=== PATIENT | female | born 1940 | race Caucasian/White ===

== ENCOUNTER 2024-03-03 03:34 | Inpatient (IN) | payer MEDICARE, OTHER, SELFPAY ==
[2024-03-02 22:36] VITALS: BMI 40.0
[2024-03-02 22:38] VITALS: BP 192/78
[2024-03-02 22:47] VITALS: BP 192/78
[2024-03-02 22:52] LABS: % Basophils 0.2 % (0-2); % Immature Granulocytes 0.6 % (0-0.5); % Monocytes 6.4 % (1.7-9.3); % Neutrophils 88.8 % (42.2-75.2); Absolute Immature Granulocytes 0.1 10^3/uL (0-0.05); Absolute Lymphocytes 0.6 10^3/uL (1.2-3.4); Absolute Monocytes 0.9 10^3/uL (0.1-0.6); Absolute Neutrophils 13.1 10^3/uL (1.4-6.5); Hematocrit 36.1 % (37.0-47.0); Hemoglobin 12.6 g/dL (12.0-16.0); Mean Corp Hgb Conc. 34.9 g/dL (33.0-37.0); Mean Corpuscular Hgb 31.5 pg (27.0-31.0); Mean Corpuscular Volume 90.3 fL (81.0-99.0); Nucleated Red Blood Cells % 0 %; Platelet Count 163 10^3/uL (130-400); Red Cell Dist. Width 14.5 % (11.5-14.5); White Blood Cell Count 14.7 10^3/uL (4.8-10.8)
[2024-03-02 23:00] VITALS: BP 197/87
[2024-03-02] MEDS: NSS 1000 IV (23:12)
[2024-03-02] MEDS: TYLENOL 1000 MG PO (23:13)
[2024-03-02 23:18] LABS: ALT (SGPT) 16 U/L (0-35); AST (SGOT) 26 U/L (14-36); Albumin 4.4 g/dl (3.5-5.0); Alkaline Phosphatase 98 U/L (38-126); Blood Urea Nitrogen 25 mg/dl (7-17); Calcium 9.2 mg/dl (8.4-10.2); Carbon Dioxide 23 mmol/L (22-30); Chloride 105 mmol/L (98-107); Glucose 151 mg/dl (70-99); Potassium 3.7 mmol/L (3.5-5.1); Sodium 137 mmol/L (135-145); Total Bilirubin 1.2 mg/dl (0.2-1.3); Total Protein 8.3 g/dl (6.3-8.2); eGFR 49.55
[2024-03-02 23:32] LABS: Creatine Phosphokinase 115 U/L (30-135)
[2024-03-02 23:51] LABS: Urine Albumin 3+ (Neg - Trace); Urine Bilirubin 1+ (Negative); Urine Character Clear (Clear); Urine Color Yellow; Urine Glucose Negative (Negative); Urine Ketone Trace (Negative); Urine Leukocyte Trace (Negative); Urine Nitrite Negative (Negative); Urine Occult Blood Trace (Negative); Urine Specific Gravity 1.025 (<1.030); Urine Urobilinogen Negative (Neg - 1+)
[2024-03-03] VITALS (16 sets, daily range): BP systolic 126–197; BP diastolic 45–134; PULSE 62; O2SAT 94; BMI 40.6
[2024-03-03 01:04] LABS: Urine Hyaline Cast >15 /LPF (0-2); Urine Mucus Moderate
[2024-03-03 01:06] LABS: Urine Bacteria Moderate (Negative); Urine Red Blood Cell 0-2 /HPF (0-2)
--- NOTE | 2024-03-03 01:52 | ED.GENMED ---
History of Present Illness
<FREEDOM Calderon - Last Filed: 03/03/24 05:18>
General
Chief Complaint: Weakness
Source: patient and family
Exam Limitations: none
Time Seen by Provider: 03/03/24 01:15
Travel History
Have you had any contact with someone who has COVID-19?: No
Do you have any symptoms of coronavirus? Fever > 100 degrees, chills, cough, shortness of breath, sore throat, loss of taste or smell, muscle aches, or headache?: No
History of Present Illness
History of Present Illness:
This is a 83 year old female with history of HTN, HLD, OA, melanoma with lymph nodes removal on left side who presents to the ED after her daughter found her stuck in her [employer] chair since 3am. Patient was found approximately 15hrs later
without any food or water. Patient reports she was unable to get up from her chair due to knee pain/stiffness. She reports still having difficulty moving her lower extremity due to the pain. She typically takes Advil daily for her OA pain. She also
admits trauma to her left breast x3 days ago where she bumped into the stairs railing. She reports redness to her left breast. She does a history of melanoma resection from her left and left axillary node dissection about 10 years ago. She denies
any pain, burning, swelling, or itching with her left breast. This has not happened to her in the past. She denies chest pain, shortness of breath, headache, or abdominal pain.
Past History
<FREEDOM Calderon - Last Filed: 03/03/24 05:18>
Past History
ED Past Medical History: HTN, Hypercholesterolemia, Other (Patient has a remote history of melanoma removed from her back 10 years ago. No chemotherapy or radiation.) and Other (Prior history of pneumonia)
ED Past Surgical History: Other (Melanoma resection from her back and left axillary node dissection which had a single positive for melanoma 10 years ago)
Social History
Tobacco: Non-smoker
Alcohol: None
Living: alone
Family History
Family History: Negative Diabetes, Hypertension, Early CAD, Asthma or Cancer
Review of Systems
<FREEDOM Calderon - Last Filed: 03/03/24 05:18>
Review of Systems
Allergies reviewed?: Yes
All Other Systems: Not applicable
Constitutional: Reports no symptoms
EENT: Reports no symptoms
Respiratory: Reports no symptoms
Cardiac: Reports no symptoms
ABD/GI: Reports no symptoms
: Reports no symptoms
Musculoskeletal: Reports joint pain and muscle stiffness
Skin: Reports other (Left breast blanchable erythema )
Neurological: Reports no symptoms
Endocrine: Reports no symptoms
Hematologic/Lymphatic: Reports no symptoms
Psychiatric: Reports no symptoms
Phy Exam
<FREEDOM Calderon - Last Filed: 03/03/24 05:18>
General Physical Exam
General Presentation: well appearing and no apparent distress
General Skin: warm and dry
General Habitus: normal
General Mental: alert
General Hydration: appears well hydrated
ENT Exam
ENT Exam: EOMI, pharynx normal, neck supple and normocephalic
Eye Exam
Eye Exam: PERRL, cornea clear and conjunctiva normal
Cardiovascular Exam
Cardiovascular Exam: regular rate/rhythm, no edema, no murmur and normal peripheral pulses
Pulmonary Exam
Pulmonary Exam: lungs clear, no respiratory distress, no rales, no crackles, no rhonchi, no stridor, no wheezing and no cough
Gastrointestinal Exam
Gastrointestinal Exam: normal bowel sounds, non tender, soft, no organomegaly, no pulsatile mass and non distended
Neurological Exam
Neurological Exam: alert, oriented x3, no motor deficits and speech normal
Musculoskeletal Exam
Musculoskeletal Exam: full ROM and edema (B/l mild lower extremity edema (chronic))
Skin Exam
Skin Exam: normal color, warm/dry, no rash, no petechia, erythema (Left breast, blanchable ) and warmth (Left breast)
Psychiatric Exam
Psychiatric Exam: normal mood/affect
Course
<FREEDOM Calderon - Last Filed: 03/03/24 05:18>
Orders/Labs/Results
Orders:
Orders
03/02/24 22:43
Electrocardiogram (*1) Urgent
Reason for Study: Other
Other Reason for Exam: Possible Sepsis
EKG- Treatment ONCE
03/02/24 22:46
Complete Blood Count/With Diff Urgent
Comprehensive Metabolic Panel Urgent
Creatine Phosphokinase Urgent
Lactic Acid Q4H
Comment: ON ICE, CANCEL 2ND ORDER IF FIRST LACTIC ACID LEVEL <2
Blood Culture Q30M
COSME Source: Blood/Venous
Specimen Description:
Comment: FROM 2 SEPARATE SITES
Blood Culture Q30M
COSME Source: Blood/Venous
Specimen Description:
Comment: FROM 2 SEPARATE SITES
03/02/24 22:57
Acetaminophen [Tylenol] 1,000 mg PO NOW STA
03/02/24 22:59
Add On- LAB Urgent
Tests Added?: CPK
0.9% Sodium Chloride 1000 ml [Nss] 1,000 ml IV BOLUS
03/02/24 23:19
Urinalysis Reflex To Culture Urgent
Date Specimen was Collected: 03/02/24
Time Specimen was Collected: 23:18
Urine Microscopic Reflex Cult Urgent
Urine Culture Urgent
COSME Source: U
Specimen Description:
Date Specimen was Collected: 03/02/24
Time Specimen was Collected: 23:18
03/03/24 02:11
0.9% Sodium Chloride 1000 ml [Nss] 1,000 ml IV 200 mls/hr
Ketorolac [Toradol] 15 mg IV NOW STA
03/03/24 02:16
Vancomycin [Vancocin] 2,000 mg 0.9% Sodium Chloride 500 ml [Nss] 500 ml IV NOW
03/03/24 02:17
Diltiazem Extended Release [Cardizem Cd] 360 mg PO NOW STA
Metoprolol Xl [Toprol Xl] 100 mg PO NOW STA
03/03/24 03:09
Admit/Transfer Patient As Directed
Co-Sign Provider:
Level of Care: Inpatient admission
Assign to:: Telemetry
Physician / Group: Moy Smith - [facility]
Diagnosis: L breast cellulitis, generalized weakness
Reason for Telemetry: Arrhythmia
Other Reason for Telemetry: sinus tach
Date to Stop Telemetry: 03/06/24
Time to Stop Telemetry: 11:00
Reason for Hospitalization: L breast cellulitis, generalized weakness - IV Abx
Expected length of stay greater than two midnights?: Yes
ELOS- Estimated Length of Stay in days: 2
I certify the patient meets the requirements for IP care: Yes
03/03/24 03:10
Code Status As Directed
Resuscitation Status: Full Code
03/03/24 04:20
0.9% Sodium Chloride 1000 ml [Nss] 1,000 ml IV 80 mls/hr
Acetaminophen [Tylenol] 650 mg PO Q4HPRN PRN
Bisacodyl [Dulcolax] 10 mg RECTAL [id number] PRN
Docusate W/Senna [Senokot-S] 1 tablet PO BIDPRN PRN
Ondansetron Injectable [Zofran] 4 mg IV Q6HPRN PRN
Polyethylene Glycol Powder [Miralax] 17 grams PO DAILYPRN PRN
VANCOMYCIN Pharmacy to Dose [VANCOCIN Pharmacy to Dose] 1 each Pharmacy To Prepare [Call Pharmacy To Prepare] 0 ml IV PER PROTOCOL
03/03/24 04:20
Breast Surgery Consult Routine
Consulting Provider: Kirstie Sprague
Was physician already notified: Yes
Reason for Consult: diffuse L breast cellulitis
MRSA Screen Routine
COSME Source: Nose
Specimen Description:
Activity As Directed
Activity Level: As Tolerated
Vital Signs As Directed
Frequency: Per unit guidelines
Ot Eval And Treat Routine
Pt Eval And Treat Routine
Activity Level: As Tolerated
US Breast Left Ltd Routine
Comment: underlying collection/abscess
Reason For Exam: L breast cellulitis, evaluate for
DX Deep Vein Thrombosis Video Routine
03/03/24 06:00
Basic Metabolic Panel IN AM
Complete Blood Count/No Diff IN AM
03/03/24 08:00
Heparin 5,000 units SC Q12
03/03/24 Lunch
Regular
At Your Request: Non-Participating
03/03/24 14:00
CeFAZolin 1 GRAM [Ancef] 1 gram in 5 ml IV Q8H
03/06/24 11:00
DC Protocol for Telemetry ONCE
Abnormal Lab Results
03/02/24 03/02/24
22:46 23:19
WBC 14.7 H 10^3/uL
(4.8-10.8)
RBC 4.00 L 10^6/uL
(4.20-5.40)
Hct 36.1 L %
(37.0-47.0)
MCH 31.5 H pg
(27.0-31.0)
Abs Immat Gran (auto) 0.1 H 10^3/uL
(0-0.05)
Absolute Neuts (auto) 13.1 H 10^3/uL
(1.4-6.5)
Absolute Lymphs (auto) 0.6 L 10^3/uL
(1.2-3.4)
Absolute Monos (auto) 0.9 H 10^3/uL
(0.1-0.6)
Immature Gran % 0.6 H %
(0-0.5)
Neutrophils % 88.8 H %
(42.2-75.2)
Lymphocytes % 4.0 L %
(20.5-51.1)
BUN 25 H mg/dl
(7-17)
Creatinine 1.1 H mg/dL
(0.6-1.0)
Glucose 151 H mg/dl
(70-99)
Total Protein 8.3 H g/dl
(6.3-8.2)
Urine Ketones Trace A
(Negative)
Ur Occult Blood Reflex Trace A
(Negative)
Urine Bilirubin 1+ A
(Negative)
Leukocyte Esterase Rfl Trace A
(Negative)
Urine Bacteria (Reflex) Moderate A
(Negative)
Urine Albumin (Reflex) 3+ A
(Neg - Trace)
03/02/24 22:46
03/02/24 22:46
Vital Signs
Initial and Last Documented VS:
Initial Vital Signs
Temp Pulse Resp BP Pulse Ox
100.8 F H 101 26 192/78 96
03/02/24 22:38 03/02/24 22:38 03/02/24 22:38 03/02/24 22:38 03/02/24 22:38
Last Documented Vital Signs
Temp Pulse Resp BP Pulse Ox
98.7 F 85 24 171/74 96
03/03/24 04:25 03/03/24 04:25 03/03/24 04:25 03/03/24 04:25 03/03/24 04:25
Rylandlt;Aracely Pace, DO - Last Filed: 03/03/24 02:30>
Orders/Labs/Results
Orders:
Orders
03/02/24 22:43
Electrocardiogram (*1) Urgent
Reason for Study: Other
Other Reason for Exam: Possible Sepsis
EKG- Treatment ONCE
03/02/24 22:46
Complete Blood Count/With Diff Urgent
Comprehensive Metabolic Panel Urgent
Creatine Phosphokinase Urgent
Lactic Acid Q4H
Comment: ON ICE, CANCEL 2ND ORDER IF FIRST LACTIC ACID LEVEL <2
Blood Culture Q30M
COSME Source: Blood/Venous
Specimen Description:
Comment: FROM 2 SEPARATE SITES
Blood Culture Q30M
COSME Source: Blood/Venous
Specimen Description:
Comment: FROM 2 SEPARATE SITES
03/02/24 22:57
Acetaminophen [Tylenol] 1,000 mg PO NOW STA
03/02/24 22:59
Add On- LAB Urgent
Tests Added?: CPK
0.9% Sodium Chloride 1000 ml [Nss] 1,000 ml IV BOLUS
03/02/24 23:19
Urinalysis Reflex To Culture Urgent
Date Specimen was Collected: 03/02/24
Time Specimen was Collected: 23:18
Urine Microscopic Reflex Cult Urgent
Urine Culture Urgent
COSME Source: U
Specimen Description:
Date Specimen was Collected: 03/02/24
Time Specimen was Collected: 23:18
03/03/24 02:11
0.9% Sodium Chloride 1000 ml [Nss] 1,000 ml IV 200 mls/hr
Ketorolac [Toradol] 15 mg IV NOW STA
03/03/24 02:16
Vancomycin [Vancocin] 2,000 mg 0.9% Sodium Chloride 500 ml [Nss] 500 ml IV NOW
03/03/24 02:17
Diltiazem Extended Release [Cardizem Cd] 360 mg PO NOW STA
Metoprolol Xl [Toprol Xl] 100 mg PO NOW STA
03/03/24 03:09
Admit/Transfer Patient As Directed
Co-Sign Provider:
Level of Care: Inpatient admission
Assign to:: Telemetry
Physician / Group: Moy Smith - hospitalists
Diagnosis: L breast cellulitis, generalized weakness
Reason for Telemetry: Arrhythmia
Other Reason for Telemetry: sinus tach
Date to Stop Telemetry: 03/06/24
Time to Stop Telemetry: 11:00
Reason for Hospitalization: L breast cellulitis, generalized weakness - IV Abx
Expected length of stay greater than two midnights?: Yes
ELOS- Estimated Length of Stay in days: 2
I certify the patient meets the requirements for IP care: Yes
03/03/24 03:10
Code Status As Directed
Resuscitation Status: Full Code
03/03/24 04:20
0.9% Sodium Chloride 1000 ml [Nss] 1,000 ml IV 80 mls/hr
Acetaminophen [Tylenol] 650 mg PO Q4HPRN PRN
Bisacodyl [Dulcolax] 10 mg RECTAL [id number] PRN
Docusate W/Senna [Senokot-S] 1 tablet PO BIDPRN PRN
Ondansetron Injectable [Zofran] 4 mg IV Q6HPRN PRN
Polyethylene Glycol Powder [Miralax] 17 grams PO DAILYPRN PRN
VANCOMYCIN Pharmacy to Dose [VANCOCIN Pharmacy to Dose] 1 each Pharmacy To Prepare [Call Pharmacy To Prepare] 0 ml IV PER PROTOCOL
03/03/24 04:20
Breast Surgery Consult Routine
Consulting Provider: Kirstie Sprague
Was physician already notified: Yes
Reason for Consult: diffuse L breast cellulitis
MRSA Screen Routine
COSME Source: Nose
Specimen Description:
Activity As Directed
Activity Level: As Tolerated
Vital Signs As Directed
Frequency: Per unit guidelines
Ot Eval And Treat Routine
Pt Eval And Treat Routine
Activity Level: As Tolerated
US Breast Left Ltd Routine
Comment: underlying collection/abscess
Reason For Exam: L breast cellulitis, evaluate for
DX Deep Vein Thrombosis Video Routine
03/03/24 06:00
Basic Metabolic Panel IN AM
Complete Blood Count/No Diff IN AM
03/03/24 08:00
Heparin 5,000 units SC Q12
03/03/24 Lunch
Regular
At Your Request: Non-Participating
03/03/24 14:00
CeFAZolin 1 GRAM [Ancef] 1 gram in 5 ml IV Q8H
03/06/24 11:00
DC Protocol for Telemetry ONCE
Abnormal Lab Results
03/02/24 03/02/24
22:46 23:19
WBC 14.7 H 10^3/uL
(4.8-10.8)
RBC 4.00 L 10^6/uL
(4.20-5.40)
Hct 36.1 L %
(37.0-47.0)
MCH 31.5 H pg
(27.0-31.0)
Abs Immat Gran (auto) 0.1 H 10^3/uL
(0-0.05)
Absolute Neuts (auto) 13.1 H 10^3/uL
(1.4-6.5)
Absolute Lymphs (auto) 0.6 L 10^3/uL
(1.2-3.4)
Absolute Monos (auto) 0.9 H 10^3/uL
(0.1-0.6)
Immature Gran % 0.6 H %
(0-0.5)
Neutrophils % 88.8 H %
(42.2-75.2)
Lymphocytes % 4.0 L %
(20.5-51.1)
BUN 25 H mg/dl
(7-17)
Creatinine 1.1 H mg/dL
(0.6-1.0)
Glucose 151 H mg/dl
(70-99)
Total Protein 8.3 H g/dl
(6.3-8.2)
Urine Ketones Trace A
(Negative)
Ur Occult Blood Reflex Trace A
(Negative)
Urine Bilirubin 1+ A
(Negative)
Leukocyte Esterase Rfl Trace A
(Negative)
Urine Bacteria (Reflex) Moderate A
(Negative)
Urine Albumin (Reflex) 3+ A
(Neg - Trace)
03/02/24 22:46
03/02/24 22:46
Vital Signs
Initial and Last Documented VS:
Initial Vital Signs
Temp Pulse Resp BP Pulse Ox
100.8 F H 101 26 192/78 96
03/02/24 22:38 03/02/24 22:38 03/02/24 22:38 03/02/24 22:38 03/02/24 22:38
Last Documented Vital Signs
Temp Pulse Resp BP Pulse Ox
98.7 F 85 24 171/74 96
03/03/24 04:25 03/03/24 04:25 03/03/24 04:25 03/03/24 04:25 03/03/24 04:25
<FREEDOM Calderon - Last Filed: 03/03/24 05:18>
MDM/Problems Addressed
Differential Diagnosis Includes:
Left breast cellulitis vs erysipelas
Left breast erysipelas considered due to left breast erythema, however there are no sharply demarcated borders making it more likely to be cellulitis of the left breast. Will start IV antibiotics in the hospital. Admit for observation. Patient also
complains of knee pain making it difficult to move. She has received two doses of Tylenol while in the ED. Will add IV Toradol for better pain control.
<FREEDOM Calderon - Last Filed: 03/03/24 05:18>
*Critical Care Note
Total Time (30-74mins, 75-104mins- exclusive of procedures): Not Applicable
ED Attending Note
<FREEDOM Calderon - Last Filed: 03/03/24 05:18>
-
Portions of this chart may have been created with voice recognition software.� Occasional wrong word or��sound alike� substitutions may have occurred due to the inherent limitations of voice recognition software.
<Aracely Pace DO - Last Filed: 03/03/24 02:30>
ED Attending Note
Patient seen and examined by attending physician: Yes
I performed the substantive portion of visit, reviewed & personally made and approve the management plan that is documented in note by myself or FISH.: Yes
I performed a history and physical exam of patient and discussed management with resident, I reviewed resident's note and agree with documented findings and plan of care.: Yes
ED Attending Note:
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 No history
of recurrence.
She presents via EMS due to generalized weakness which began their 24 hours ago when she had difficulty getting up out of her chair. She admits to sitting in her chair since 3:00 in the morning yesterday.
She denies fall nor loss of consciousness.
Her daughter happened to find her sitting in her chair this evening and called 911 due to inability to get her up out of the chair.
Patient mitts no oral intake nor taking her usual medications throughout the day today.
She does note mild discomfort left breast and believes she inadvertently bumped her left breast 2 days ago.
She denies cough nor shortness of breath, no chest pain or abdominal pain, no nausea nor vomiting, no diarrhea nor constipation. She denies dysuria and urgency nor hematuria.
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 Patient states these skin lesions have been chronic and unchanged.
GENERAL: 83-year-old woman appears her stated age, bright and alert, pleasant, appears in no acute distress. Noted to be febrile upon arrival to the ED.
EYE: anicteric
NECK: Supple, nontender, no meningismus, no significant adenopathy.
ENT: posterior pharynx is clear, oral mucosa is minimally dry. No rhinorrhea.
CARDIAC: Regular rate and rhythm. no murmur.
Left breast has a significant global erythema and is warm to touch with moderate palpable firmness inferior breast below the areola. There is no nipple drainage. No evidence of abscess.
LUNGS: Clear breath sounds bilaterally, no acute respiratory distress, no wheezes/rales/rhonchi
ABDOMEN: Soft, nondistended, without focal tenderness, no r/g, no cvat. normoactive BS.
NEUROLOGICAL: Alert and oriented x3, no focal neuro deficits.
SKIN: Mildly hot to touch and dry, normal color, thickened scaly plaque lesions bilateral lower legs with very minimal surrounding erythema. No palpable tenderness nor palpable heat.
MUSCULOSKELETAL: No C/C/E. peripheral pulses are full and equal b/l. No palpable tenderness.
PSYCH: Normal and appropriate interaction.
Patient presents with generalized weakness, inability to stand up from her chair with prolonged seated position for approximately 20 hours.
Noted to be febrile upon arrival to the ED.
Exam is also notable for significant erythema and warmth of left breast suspicious for cellulitis of left breast. With history of prior left axillary lymph node dissection she is certainly at risk for poor lymphatic drainage, increased risk for
cellulitis of left breast, left arm.
Bilateral lower extremity scaly plaques appear chronic in nature no definitive evidence of focal cellulitis.
Labs are remarkable for elevated white blood cell count of 14.
Mildly elevated BUN and creatinine compared to previous and I suspect an element of dehydration. Patient has had no oral intake over the past 20 hours.
CPK is normal. No evidence of rhabdomyolysis.
Lactic acid Normal at 2.0.
Urinalysis is unremarkable, no evidence of UTI.
Also complains of generalized weakness, no focal weakness, nothing to suggest CVA.
Will initiate IV vancomycin for left breast cellulitis, continue IV fluids and admit to hospitalist service.
Discharge Plan
Departure
Patient Disposition: Admit
Date of Disposition: 03/03/24
Time of Disposition: 02:14
Admit to: Med/Surg
Admit to doctor: Sarah
Presentation/result/management discussed w/ accepting MD/DO: Hospitalist
Condition: Fair
Discharge Problem:
Cellulitis of left breast, SIRS (systemic inflammatory response syndrome), Fever r/o sepsis, Generalized muscle weakness
Interventions
Interventions:
*Risk Screen - Suicide Last Done: 03/03/24 04:29
*General Assessment Last Done: 03/02/24 22:38
*Neglect/Abuse Screening Last Done: 03/03/24 02:52
ED- Fall Risk Assessment Last Done: 03/02/24 23:23
*ED COVID-19 Vaccine History Last Done: 03/03/24 02:52
*Nursing Disposition Last Done: 03/03/24 04:06
ED- Cardiac Assessment Last Done: 03/03/24 03:30
ED- Neurological Assessment Last Done: 03/03/24 03:30
ED- Pulmonary Assessment Last Done: 03/03/24 03:30
Discharge Date and Time
Discharge Date/Time: 03/03/24 04:05
[2024-03-03] MEDS: TORADOL 15 MG IV (02:15)
[2024-03-03] MEDS: NSS 1000 IV ×3 (02:19→14:37)
[2024-03-03] MEDS: CARDIZEM CD 360 MG PO ×2 (02:33→09:06)
[2024-03-03] MEDS: VANCOCIN 540 MG IV (02:33)
[2024-03-03] MEDS: TOPROL XL 100 MG PO ×2 (02:35→09:07)
--- NOTE | 2024-03-03 02:50 | HPS.HSE ---
Addendum entered and electronically signed by Moy Smith MD 03/03/24 04:07:
Allergies
Allergy/AdvReac Type Severity Reaction Status Date / Time
amoxicillin Allergy Unknown Verified 02/05/11 07:39
hydrocodone Allergy Unknown Verified 02/05/11 07:39
Penicillins Allergy Unknown Verified 02/05/11 07:39
Home Medications
atorvastatin 10 mg tablet 10 mg PO DAILY 03/03/24
diltiazem HCl 360 mg tablet,extended release 24 hr 360 mg PO DAILY 03/03/24
fexofenadine 180 mg tablet ([facility]) 180 mg PO DAILY 03/03/24
hydrochlorothiazide 25 mg tablet 25 mg PO DAILY 03/03/24
ibuprofen 200 mg tablet (Advil) 400 mg PO TID arthritic pain 03/03/24
metoprolol succinate 100 mg tablet,extended release 24 hr 100 mg PO DAILY 03/03/24
Original Note:
Family Physician
-
Family Physician: Nat Parry
Chief Complaint
-
weakness
History of Present Illness
83 y/o F hx of HTN, HLD, OA, melanoma with L axillary lymph node removal presents to ER after being found stuck in her stair lift since 3 AM. Patient was found by daughter. She was without food or water during that time. She reports she was unable
to get up from chair due to knee pain/stiffness. At baseline, she has ambulatory dysfunction due to LE pain and knee pain.
She reports trauma to her left breast 3 days; bumped into the stair railing. She reports redness on the L breast. No swelling or itching of breast.
No other complaints
Medical History
Past Medical History
Past Medical History: Reports Other (HTN, HLD, OA, melanoma with L axillary lymph node removal)
Past Surgical History: Reports Other (Other (Melanoma resection from her back and left axillary node dissection which had a single positive for melanoma 10 years ago))
Social History
Tobacco: Non-smoker
Alcohol: None
Living: Alone
Family History
Family History: Not pertinent
Allergies / Home Medications
Allergies reflects when Allergies were last updated in [facility].
Home Medications with original date entered in [facility]
Allergy/Medication List:
N/A - pending med rec
If medication reconciliation has not been performed, why?: Medication List N/A
If Other, explain: awaiting med rec
Review of Systems
-
A 12 point ROS was completed and negative except as noted: Yes
Physical Exam
Vital Signs
Vital Signs
Temp Pulse Resp BP Pulse Ox
99.6 F 100 28 191/71 94
03/03/24 02:10 03/03/24 02:35 03/03/24 02:00 03/03/24 02:35 03/03/24 02:00
Physical Exam
General: Well Developed and Well Nourished
HEENT: NormoCephalic and Anicteric
Respiratory: No Wheezes or Rales
Cardiac: S1/S2 and Regular Rhythm
Breast: Other (L breast redness, warmth, no appreciable mass or collection)
GI: Soft
Neuro: AO x 3
Psych: Calm
Laboratory Results
-
03/02/24 22:46
03/02/24 22:46
Laboratory Results
Lactic Acid Cancelled 03/03/24 02:45
Total Bilirubin 1.2 mg/dl (0.2-1.3) 03/02/24 22:46
AST 26 U/L (14-36) 03/02/24 22:46
ALT 16 U/L (0-35) 03/02/24 22:46
Alkaline Phosphatase 98 U/L (38-126) 03/02/24 22:46
Data Reviewed
-
Lab Data: Labs Reviewed by me
Impression/Plan
-
Assessment:
L breast cellulitis, related to recent breast trauma
mild MAR with dehydration
Generalized weakness
HX of melanoma with L axillary lymph node removal
Essential HTN with urgency
HLD
OA
Plan:
start IV Abx, Vanco and Ancef. Check MRSA swab. Follow cultures.
breast specialist consult (Dr. Sprague - please tiger text her in AM).
Received Toprol and Cardizem in ER - monitor BP response
Needs med rec completed
DVT ppx: SC Heparin
Code: Full
[2024-03-03 06:38] LABS: Hematocrit 33.3 % (37.0-47.0); Hemoglobin 11.3 g/dL (12.0-16.0); Mean Corp Hgb Conc. 33.9 g/dL (33.0-37.0); Mean Corpuscular Hgb 31.6 pg (27.0-31.0); Mean Platelet Volume 10.8 fL (7.4-10.4); Platelet Count 139 10^3/uL (130-400); Red Blood Cell Count 3.58 10^6/uL (4.20-5.40); Red Cell Dist. Width 14.6 % (11.5-14.5); White Blood Cell Count 14.3 10^3/uL (4.8-10.8)
[2024-03-03 06:59] LABS: Blood Urea Nitrogen 23 mg/dl (7-17); Calcium 8.3 mg/dl (8.4-10.2); Carbon Dioxide 23 mmol/L (22-30); Chloride 109 mmol/L (98-107); Estimated Creatinine Clearance 52 ml/min; Glucose 104 mg/dl (70-99); Potassium 3.3 mmol/L (3.5-5.1); Sodium 137 mmol/L (135-145); eGFR 55.55
--- NOTE | 2024-03-03 07:38 | W.PN.HOSP.TC ---
Today's Communication/Plan
-
see bold
Assessment / Plan
Assessment / Plan
Gen: NAD, AAOx3.
Eyes: EOMI, PERRLA, no scleral icterus.
Neck: supple.
CV: RRR, +S1/S2, no m/r/g.
Resp: CTAB, no rales, wheezes, or rhonchi.
Abd: +BS, soft, NT, ND
Skin: 1+ tense B/L LE edema.
Neuro: CN 2-12 intact, non-focal.
Psych: Normal mood and affect.
03/02/24 22:46 Blood/Venous Blood Culture - Preliminary
Positive culture in progress
03/02/24 22:46 Blood/Venous Gram Stain - Final
03/02/24 22:46 Blood/Venous Blood Culture - Preliminary
Positive culture in progress
03/02/24 22:46 Blood/Venous Gram Stain - Final
Sepsis due to L breast cellulitis:
-related to recent breast trauma
-check L breast U/S
-cont IV Vanco/Ancef
-c/s Dr. Sprague
-c/s ID
-repeat BCxs at 24 hours (2200 today)
Other problems:
MAR has been ruled out, pt with mild dehydration
Generalized weakness: PT/OT
Hypokalemia: PO K
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
Essential HTN with hypertensive urgency: cont cardizem/BB
HLD: cont statin
OA
FULL/Heparin
Anticipated Discharge: > 48 hours
Subjective/Interval History
-
Date of Service: March 03, 2024
Denies CP/SOB.
Objective Data
-
Labs:
Laboratory Results
03/02/24 03/03/24
22:46 05:38
WBC 14.7 H 14.3 H
Hgb 12.6 11.3 L
Hct 36.1 L 33.3 L
Plt Count 163 139
Sodium 137 137
Potassium 3.7 3.3 L
Chloride 105 109 H
Carbon Dioxide 23 23
BUN 25 H 23 H
Creatinine 1.1 H 1.0
Glucose 151 H 104 H
Calcium 9.2 8.3 L
Total Bilirubin 1.2
AST 26
ALT 16
Alkaline Phosphatase 98
Vital Signs:
Vital Signs
Temp Pulse Resp BP Pulse Ox
98.7 F 85 24 184/62 96
03/03/24 04:25 03/03/24 04:25 03/03/24 04:25 03/03/24 05:25 03/03/24 06:02
I&O
03/02/24 03/03/24 03/04/24
06:59 06:59 06:59
Intake Total 240 / 240
Balance 240 / 240
--- NOTE | 2024-03-03 08:00 | PHA.VAN.IN ---
Assessment
- Assessment
Renal Function: Appears similar to baseline (BUN & SCR trending down from admission)
Concomitant Antimicrobials: cefazolin
AUC Dosing Plan
- Dosing Variables
Dosing Weight (kg): 111
Dosing CrCl (ml/min): 52
Vd coefficient (L/kg): 0.6
- Empiric Dosing
Initial / Loading Dose: 2000mg - 03/03 02:33
Maintenance Regimen: Vanc 1500mg Q24H starting 03/04 0600
Estimated AUC (mcg*h/mL): 490
Estimated Peak (mcg*h/mL): 33.1
Estimated Trough (mcg/ml): 11.3
Estimated Half Life (H): 14.6
- Monitoring
No levels ordered at this time: consider levels in next few days
Pharmacokinetics Vancomycin I
- -
Patient Age: 83
Patient Sex: Female
Vancomycin Day #: 1
Indication: Skin And Soft Tissue
Requesting Provider: Dr. Smith
Pertinent Antimicrobial Allergies:
amoxicillin - unknown
penicillins - unknown
Height / Weight:
Height 5 ft 5 in
Actual Weight 110.722 kg
Pertinent Past Medical History: BMI ~40.6
- Vital Signs / Lab Results
Temp Pulse Resp BP Pulse Ox
98.7 F 85 24 184/62 96
03/03/24 04:25 03/03/24 04:25 03/03/24 04:25 03/03/24 05:25 03/03/24 06:02
Lab Results - Hematology
03/02/24 03/03/24
22:46 05:38
WBC 14.7 H 14.3 H
Lab Results - Chemistry
03/02/24 03/03/24
22:46 05:38
BUN 25 H 23 H
Creatinine 1.1 H 1.0
Estimated Creat Clear 52
Albumin 4.4
03/02/24 03/03/24
22:46 02:45
Lactic Acid 2.0 Cancelled
Lab Results - Urine
03/02/24
23:19
Urine Nitrite (Reflex) Negative
Leukocyte Esterase Rfl Trace A
Urine WBC (Reflex) 3-5
Ur Squamous Epith Cells 3-5
Urine Bacteria (Reflex) Moderate A
Microbiology Results
03/02/24 22:46 Blood Culture - Preliminary
Blood/Venous Positive culture in progress
Gram Stain - Final
03/02/24 22:46 Blood Culture - Preliminary
Blood/Venous Positive culture in progress
Gram Stain - Final
[2024-03-03] MEDS: TYLENOL 650 MG PO ×2 (09:06→23:29)
[2024-03-03] MEDS: CLARITIN 10 MG PO (09:06)
[2024-03-03] MEDS: LIPITOR 10 MG PO (09:07)
[2024-03-03] MEDS: KCL 40 MEQ PO (09:07)
[2024-03-03] MEDS: HEPARIN 5000 UNITS SC ×2 (09:08→20:13)
--- NOTE | 2024-03-03 12:12 | WOUNDNOTE ---
L LATERAL LOWER LEG
--- NOTE | 2024-03-03 12:15 | WOUNDNOTE ---
BERNADINE RN note: Patient admitted with cellulitis of L breast.
See H&P for complete history.
PMH: HTN,HLD,OA and melanoma of L axillary node and back, removed 10 yrs ago.
Wound Location and type/assessment: Patient admitted with: L lower medial leg with dry old venous stasis ulcer, now with patch of crusted venous stasis ulcer. + palpable pedal pulses, legs with 1-2+ edema and very dry skin. Patient states she uses
Tubigrip for compression at home. Sacrum and heels are intact.
Appetite: Good.
Pressure redistribution devices in place: Centrella air bed, turns with 1 assist.
Plan: Applied A&D ointment to legs and called [employer] for Tubigrip size F. Will order mineral oil to start tomorrow. Asked nurse to apply Tubigrip when received. Will confirm orders with hospitalist and updated nurse.
Updated care plan and will follow as needed.
Note to case management of equipment requested for discharge: None.
--- NOTE | 2024-03-03 13:09 | CON.ID ---
Consultation
-
Date/Time Consultation Requested: 03/03/2024 08:29
Date/Time Consultation Performed: 03/03/2024 1300
Requesting Provider: Dr. Mann
Performing Provider: Dr. Fam
Reason for Consultation: Left breast cellulitis
Chief Complaint / Past History
History of Present Illness
Melissa Thrasher is an 83-year-old female being evaluated at the request of Dr. Mann in regards to left breast cellulitis. History is obtained from chart review, along with patient interview.
According to reviewed notes the patient was found by her daughter yesterday evening stuck in the staBrickflow chair, where she had been for approximately 18 hours. She reported that she was unable to get up from the chair due to her knee pain and
stiffness and she was also having difficulty moving her lower extremities due to pain. She admitted to trauma to her left breast approximately 3 days prior when she had bumped into a stair railing. She admitted to redness of the left breast area,
but no pain.
In the ER she was found to have significant left breast erythema and she was started on IV antibiotics. Blood cultures obtained at the time of admission have now been found to be positive for group B strep. Infectious Diseases is asked to comment
upon further antimicrobial management.
Past History
Additional Past Medical History:
HTN
Dyslipidemia
Osteoarthritis
Hx melanoma
Additional Past Surgical History:
Melanoma resection
Allergy History:
amoxicillin Allergy (Verified 02/05/11 07:39)
Unknown
hydrocodone Allergy (Verified 02/05/11 07:39)
Unknown
Penicillins Allergy (Verified 02/05/11 07:39)
Unknown
Medications Reviewed: Yes
Current Antibiotics:
Cefazolin 1 g IV every 8 hours
Social History
Tobacco: Non-Smoker
Alcohol: Occasional
Drug: None
Personal: Single
Living: Alone
Employment: Retired
Family History
Family History: Not Pertinent
Review of Systems
Vital Signs
Temp Pulse Resp BP Pulse Ox
97.8 F 65 20 136/53 94
03/03/24 11:30 03/03/24 11:30 03/03/24 11:30 03/03/24 11:30 03/03/24 11:30
Physical Exam
Physical Exam
Constitutional: No Acute Distress, Comfortable and Non-toxic
Head: Normocephalic
Eyes: No Conjunctival Hemorrhage and Sclera Anicteric
Pharynx: Benign
Oral: No Thrush and No Ulcers
Cardiovascular: S1/S2; Negative S3/S4 or Murmur
Pulmonary: Wheezes (faint), Coarse and Non Labored
Gastrointestinal: Soft, Non Tender, Non Distended and Normal Bowel Sounds
Extremities: Negative Edema, Cyanosis or Erythema
Skin: Other (Marked erythema and edema of the left breast area especially from the nipple to the outer quadrants.)
Neurological: Awake and Alert
Psychological: Calm
Lab / Diagnostic Study Results
03/03/24 05:38
03/03/24 05:38
Abs Immat Gran (auto) 0.1 10^3/uL (0-0.05) H 03/02/24 22:46
Absolute Neuts (auto) 13.1 10^3/uL (1.4-6.5) H 03/02/24 22:46
Absolute Lymphs (auto) 0.6 10^3/uL (1.2-3.4) L 03/02/24 22:46
Absolute Monos (auto) 0.9 10^3/uL (0.1-0.6) H 03/02/24 22:46
Absolute Basos (auto) 0.0 10^3/uL (0-0.2) 03/02/24 22:46
Immature Gran % 0.6 % (0-0.5) H 03/02/24 22:46
Neutrophils % 88.8 % (42.2-75.2) H 03/02/24 22:46
Lymphocytes % 4.0 % (20.5-51.1) L 03/02/24 22:46
Monocytes % 6.4 % (1.7-9.3) 03/02/24 22:46
Eosinophils % 0.0 % (0-6) 03/02/24 22:46
Basophils % 0.2 % (0-2) 03/02/24 22:46
Lactic Acid Cancelled 03/03/24 02:45
Ur Squamous Epith Cells 3-5 /LPF (Few) 03/02/24 23:19
Microbiology Results
Micro:
03/02/24 22:46 Blood Culture - Preliminary
Blood/Venous Streptococcus agalactiae
Gram Stain - Final
03/02/24 22:46 Blood Culture - Preliminary
Blood/Venous Positive culture in progress
Gram Stain - Final
03/03/24 06:06 MRSA Screen - Pending
Nose
03/02/24 23:19 Urine Culture - Pending
Urine
Imaging:
03/03/2024 Ultrasound left breast: Edematous changes of the soft tissues of the left breast. No abscess identified.
Assessment / Plan
Left breast cellulitis
Group B strep bacteremia
Leukocytosis
Fever
Lower extremity venous insufficiency
HTN
Dyslipidemia
Osteoarthritis
Hx melanoma
Recommendations:
Continue with cefazolin; increased to 2 g IV every 8 hours.
Repeat blood cultures have been ordered; follow to assure clearance of bacteremia
Local care to the breast area.
Follow white count and temperature curve
Await evaluation by Breast Sx.
[2024-03-03] MEDS: ANCEF 10 IV ×2 (14:37→21:29)
--- NOTE | 2024-03-03 16:34 | CM ---
Met with patient at the bedside; initial assessment and case management consult completed
Pharmacy verified: [facility]
Patient lives alone in a multilevel home; enters via laundry room entrance of the home; home has 2 stair glides; one to the main level and another to the 2nd floor of the house; she has access to a full bathroom on the 1st floor; walk-in shower with
grab bar; sleep in bedroom on the 2nd floor
PLOF: reports she was independent prior to admission; ambulated with a cane; and used a WC when she went out;
Drives in the daytime only; short distances
SNF/Rehab/Home Health utilization history: none
Transportation: family will provide
Explained to patient that PT recommended SNF when stable for discharge; list of facilities provided. Patient will review with daughter and give preferences with 24-48 hours; may want her daughter to visit sites first; discussed that if she was not
agreeable with plan, we can also offer home health services for PT
Plan: Discharge to SNF when medically stable if she is agreeable. Will follow up and obtain SNF site preferences
--- NOTE | 2024-03-03 23:15 | CON.GS ---
Consultation
-
Date/Time Consultation Requested: 03/03/24
Date/Time Consultation Performed: 03/03/24
Requesting Provider: Johnathan
Performing Provider: Celestine
Reason for Consultation: infection and trauma left breast
Medical History
-
Chief Complaint: Painful red breast
History of Present Illness:
The patient is an 83 Y/O female with risk factors for breast cancer of nulliparity, and a prior history of melanoma admitted with erythema, fever and leukocytosis and right breast erythema and pain. She reports that she had bumped her breast a few
days ago. She had melanoma excised from her back with a left axillary dissection 26 yrs ago. The melanoma was level 4 by her report. This morning her daughter found her stuck in her stair lift as she was too weak to get up.
Past Medical History
Past Medical History: Cancer
Past Surgical History: Other (melanoma of the back, left ALND)
Social History
Tobacco: Non-Smoker
Drug: None
Personal:
Living: Alone
Employment: Retired
Family History
Family History: Reviewed & Not Pertinent
Allergies / Home Medications
Allergy/AdvReac Type Severity Reaction Status Date / Time
amoxicillin Allergy Unknown Verified 02/05/11 07:39
hydrocodone Allergy Unknown Verified 02/05/11 07:39
Penicillins Allergy Unknown Verified 02/05/11 07:39
�Medication �Instructions �Recorded �Confirmed �Type
atorvastatin 10 mg tablet 10 mg PO DAILY 03/03/24 03/03/24 History
diltiazem HCl 360 mg 360 mg PO DAILY 03/03/24 03/03/24 History
tablet,extended release 24 hr
fexofenadine 180 mg tablet 180 mg PO DAILY 03/03/24 03/03/24 History
([facility])
hydrochlorothiazide 25 mg tablet 25 mg PO DAILY 03/03/24 03/03/24 History
ibuprofen 200 mg tablet (Advil) 400 mg PO TID arthritic pain 03/03/24 03/03/24 History
metoprolol succinate 100 mg 100 mg PO DAILY 03/03/24 03/03/24 History
tablet,extended release 24 hr
Review of Systems
-
History Source: Patient
All other systems: Negative unless noted
Skin: Other (erythema left breast)
A 10 point review of systems was completed, and was negative except as per HPI.
Physical Exam
Vital Signs
Temp Pulse Resp BP Pulse Ox
99.5 F 67 22 158/58 95
03/03/24 19:10 03/03/24 19:10 03/03/24 19:10 03/03/24 19:10 03/03/24 19:10
03/02/24 03/03/24 03/04/24
06:59 06:59 06:59
Actual Weight 110.722 kg
Body Mass Index (BMI) 40.6
Lab Results
03/03/24 05:38
03/03/24 05:38
WBC 14.3 10^3/uL (4.8-10.8) H 03/03/24 05:38
Hgb 11.3 g/dL (12.0-16.0) L 03/03/24 05:38
Hct 33.3 % (37.0-47.0) L 03/03/24 05:38
Plt Count 139 10^3/uL (130-400) 03/03/24 05:38
Abs Immat Gran (auto) 0.1 10^3/uL (0-0.05) H 03/02/24 22:46
Neutrophils % 88.8 % (42.2-75.2) H 03/02/24 22:46
Physical Exam
General: Well Developed and Well Nourished
HEENT: Normocephalic and Anicteric
Respiratory: Clear
Breast: Other (erythema left breast)
Musculoskeletal: Edema
Neuro: Awake and Alert
Hematologic/Lymphatic: No Lymphadenopathy
Psych: Calm
Data Reviewed
-
Radiology: Image Personally Visualized and interpreted and Report Reviewed by me
Labs: Labs Reviewed by me and Discussed with Patient
Total Time Spent with Patient (in minutes): 20
Assessment / Plan
-
81 Y/O female with mastitis left breast. There is no evidence of collection on US. Would continue with antibiotics and follow clinically. When she can tolerate compression, pt needs an updated mammogram.
[2024-03-03] MEDS: APRESOLINE 5 MG IV (23:30)
[2024-03-04 00:15] VITALS: BP 166/68
[2024-03-04 03:25] VITALS: BP 193/65
[2024-03-04] MEDS: APRESOLINE 5 MG IV ×3 (03:37→16:51)
[2024-03-04] MEDS: NSS 1000 IV (03:42)
[2024-03-04] MEDS: ANCEF 10 IV ×3 (05:43→21:01)
[2024-03-04 07:15] VITALS: BP 181/69
--- NOTE | 2024-03-04 08:21 | W.PN.UPDATE ---
Update Note
Progress Note Update
81 Y/O female admitted yesterday after being unable to ambulate and with fever, leukocytosis and breast erythema. She is only complaining
of left knee and hip pain when trying to ambulate yesterday. She is afebrile and has no breast pain. Her left breast has a significant reduction
in erythema. No collection on US. Would plan 10-14 days antibiotic therapy with soft tissue infection. Staph coverage should be adequate.
Pt can receive mammogram after discharge. Will sign off and see again if needed.
--- NOTE | 2024-03-04 08:28 | W.PN.HOSP.TC ---
Addendum entered and electronically signed by Evan Mann MD 03/04/24 11:56:
Morbid obesity due to excess calories, BMI 40.6: Encourage weight loss, affects all aspects of care.
Original Note:
Today's Communication/Plan
-
see bold
Assessment / Plan
Assessment / Plan
Gen: NAD, Awake and alert
Eyes: EOMI, PERRLA, no scleral icterus.
Neck: supple.
CV: remains RRR, +S1/S2, no m/r/g.
Resp: CTAB, no rales, wheezes, or rhonchi.
Abd: +BS, soft, NT, ND
Skin: 1+ tense B/L LE edema, compression dressings intact.
Breast exam deferred
Neuro: CN 2-12 intact, non-focal.
Psych: Normal mood and affect.
03/02/24 22:46 Blood/Venous Blood Culture - Preliminary
Streptococcus agalactiae
03/02/24 22:46 Blood/Venous Gram Stain - Final
03/02/24 22:46 Blood/Venous Blood Culture - Preliminary
Positive culture in progress
03/02/24 22:46 Blood/Venous Gram Stain - Final
Breast U/S: Edematous change of the soft tissues of the left breast. No abscess identified. Findings likely due to the recent trauma. Breast carcinoma not excluded. Further evaluation would include a mammogram. This may be performed when the patient
is stronger. Incidental small simple cyst.
Sepsis due to L breast cellulitis:
-related to recent breast trauma
-L breast U/S without abscess
-cont IV Ancef as per ID
-Dr. Sprague saw in c/s
-follow repeat BCxs
Other problems:
MAR has been ruled out, pt with mild dehydration
Generalized weakness: PT/OT
Hypokalemia
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
Essential HTN with hypertensive urgency: cont cardizem/BB
HLD: cont statin
OA
FULL/Heparin
Anticipated Discharge: 24 - 48 hours
Subjective/Interval History
-
Date of Service: March 04, 2024
No new complaints.
Objective Data
-
Vital Signs:
Vital Signs
Temp Pulse Resp BP Pulse Ox
98.7 F 68 16 181/69 95
03/04/24 07:15 03/04/24 07:15 03/04/24 07:15 03/04/24 07:15 03/04/24 07:15
I&O
03/03/24 03/04/24 03/05/24
06:59 06:59 06:59
Intake Total 240 / 240 720 / 720
Output Total 425 / 425
Balance 240 / 240 295 / 295
[2024-03-04] MEDS: CLARITIN 10 MG PO (08:57)
[2024-03-04] MEDS: CARDIZEM CD 360 MG PO (09:00)
[2024-03-04] MEDS: LIPITOR 10 MG PO (09:01)
[2024-03-04] MEDS: TOPROL XL 100 MG PO (09:01)
[2024-03-04] MEDS: TYLENOL 650 MG PO (09:02)
[2024-03-04] MEDS: HEPARIN 5000 UNITS SC ×2 (09:02→20:49)
[2024-03-04] MEDS: HYDROPHOR 1 APPLIC TOPICAL (09:02)
[2024-03-04 09:41] LABS: Hematocrit 34.6 % (37.0-47.0); Hemoglobin 11.7 g/dL (12.0-16.0); Mean Corp Hgb Conc. 33.8 g/dL (33.0-37.0); Mean Corpuscular Hgb 31.6 pg (27.0-31.0); Mean Corpuscular Volume 93.5 fL (81.0-99.0); Platelet Count 149 10^3/uL (130-400); Red Cell Dist. Width 14.5 % (11.5-14.5); White Blood Cell Count 11.8 10^3/uL (4.8-10.8)
[2024-03-04 09:58] LABS: Blood Urea Nitrogen 17 mg/dl (7-17); Calcium 8.3 mg/dl (8.4-10.2); Carbon Dioxide 23 mmol/L (22-30); Chloride 110 mmol/L (98-107); Estimated Creatinine Clearance 74 ml/min; Glucose 106 mg/dl (70-99); Potassium 3.5 mmol/L (3.5-5.1); Sodium 139 mmol/L (135-145); eGFR > 60.00
--- NOTE | 2024-03-04 10:16 | W.PN.ID1 ---
Date of Service
Date of Service: March 04, 2024
Today's Communication
Continue cefazolin for today.
Assessment / Plan
Left breast cellulitis
Group B strep bacteremia
Leukocytosis
Fever
Lower extremity venous insufficiency
HTN
Dyslipidemia
Osteoarthritis
Hx melanoma
Recommendations:
Continue with cefazolin 2 g IV every 8 hours.
Repeat blood cultures have been ordered; follow to assure clearance of bacteremia
Local care to the breast area.
Follow white count and temperature curve
May be able to transition to oral antibiotics in the next 48 hours or so.
Chief Complaint
-: Cellulitis and Bacteremia
Subjective / Review of Systems
Review of Systems: No Fever and No Chills
Vital Signs / Physical Exam
Vital Signs
Vital Signs
Temp Pulse Resp BP Pulse Ox
98.7 F 68 16 181/69 95
03/04/24 07:15 03/04/24 09:01 03/04/24 07:15 03/04/24 09:01 03/04/24 07:15
Physical Exam
Constitutional: No Acute Distress, Comfortable and Non-toxic
Eyes: Sclera Anicteric
Cardiovascular: S1/S2; Negative S3/S4 or Murmur
Pulmonary: Wheezes and Non Labored
Gastrointestinal: Soft, Non Tender and Non Distended
Skin: Other (Left breast with ongoing erythema, although decreased from yesterday's exam. Area is warm, but not especially tender to touch.)
Neurological: Awake and Alert
Psychological: Calm
Objective Data
Lab Data
Lab Results
03/04/24 09:00
03/04/24 09:00
Estimated Creat Clear 74 ml/min 03/04/24 09:00
Lactic Acid Cancelled 03/03/24 02:45
Total Bilirubin 1.2 mg/dl (0.2-1.3) 03/02/24 22:46
AST 26 U/L (14-36) 03/02/24 22:46
ALT 16 U/L (0-35) 03/02/24 22:46
Alkaline Phosphatase 98 U/L (38-126) 03/02/24 22:46
Most recent labs reviewed.
Micro Results:
03/02/24 23:19 Urine Culture - Final
Urine No Significant Growth
03/03/24 06:06 MRSA Screen - Final
Nose No Methicillin Resistant Staphylococcus aureus isolated.
03/03/24 21:55 Blood Culture - Pending
Blood/Venous
03/03/24 21:14 Blood Culture - Pending
Blood/Venous
03/02/24 22:46 Blood Culture - Preliminary
Blood/Venous Streptococcus agalactiae
Gram Stain - Final
03/02/24 22:46 Blood Culture - Preliminary
Blood/Venous Positive culture in progress
Gram Stain - Final
--- NOTE | 2024-03-04 11:37 | PN.CDI ---
CDI
- -
CDI:
Physician Documentation Request
Admit Date: 03/03/24 03:34
Dear Doctor Johnathan,
Please review the following and provide your response in the progress notes.
Clinical Indicators:
Height: 5'5
Weight: 244lbs
BMI: 40.6
If possible, please provide an associated diagnosis related to the abnormal BMI, such as:
Morbid obesity due to excess calories
BMI is not significant
Other
Use of terms such as suspected, likely, concern for, or probable (associated with a specific diagnosis that is being evaluated, monitored, or treated as if it exists) are acceptable and can be coded in the inpatient setting, when documented at the
time of discharge.
Thank you,
Dileep Perry RN
CDI Specialist
Please use your independent medical judgment in providing your response.
[2024-03-04 15:10] VITALS: BP 174/72
[2024-03-04 15:31] VITALS: BP 126/45; PULSE 62; O2SAT 94
--- NOTE | 2024-03-04 15:38 | CM ---
IV/AB. Received preferences from patient for SNF: [facility] and [facility]. Referrals forwarded.
[2024-03-04] MEDS: MOTRIN 400 MG PO (16:51)
[2024-03-04] MEDS: APRESOLINE 25 MG PO (21:01)
[2024-03-04 23:20] VITALS: BP 168/75
[2024-03-05] MEDS: ANCEF 10 IV ×3 (05:17→23:01)
[2024-03-05] MEDS: MOTRIN 400 MG PO (05:24)
[2024-03-05 06:25] LABS: Hematocrit 34.1 % (37.0-47.0); Hemoglobin 11.4 g/dL (12.0-16.0); Mean Corp Hgb Conc. 33.4 g/dL (33.0-37.0); Mean Corpuscular Hgb 31.3 pg (27.0-31.0); Mean Corpuscular Volume 93.7 fL (81.0-99.0); Mean Platelet Volume 10.7 fL (7.4-10.4); Platelet Count 161 10^3/uL (130-400); Red Blood Cell Count 3.64 10^6/uL (4.20-5.40); Red Cell Dist. Width 14.6 % (11.5-14.5); White Blood Cell Count 10.7 10^3/uL (4.8-10.8)
[2024-03-05 06:51] LABS: Blood Urea Nitrogen 19 mg/dl (7-17); Calcium 8.6 mg/dl (8.4-10.2); Carbon Dioxide 24 mmol/L (22-30); Chloride 109 mmol/L (98-107); Estimated Creatinine Clearance 74 ml/min; Glucose 100 mg/dl (70-99); Potassium 3.6 mmol/L (3.5-5.1); Sodium 139 mmol/L (135-145); eGFR > 60.00
[2024-03-05 07:15] VITALS: BP 175/61
[2024-03-05] MEDS: CARDIZEM CD 360 MG PO (09:00)
[2024-03-05] MEDS: LIPITOR 10 MG PO (09:00)
[2024-03-05] MEDS: TOPROL XL 100 MG PO (09:00)
[2024-03-05] MEDS: APRESOLINE 25 MG PO (09:00)
[2024-03-05] MEDS: CLARITIN 10 MG PO (09:00)
[2024-03-05] MEDS: HEPARIN 5000 UNITS SC ×2 (09:00→19:54)
[2024-03-05] MEDS: HYDROPHOR 1 APPLIC TOPICAL (09:03)
--- NOTE | 2024-03-05 09:10 | W.PN.HOSP.TC ---
Today's Communication/Plan
-
see bold
Assessment / Plan
Assessment / Plan
Gen: remains NAD, Awake and alert
Eyes: EOMI, PERRLA, no scleral icterus.
Neck: supple.
CV: continues to remain RRR, +S1/S2, no m/r/g.
Resp: CTAB, no rales, wheezes, or rhonchi.
Abd: +BS, soft, NT, ND
Skin: 1+ tense B/L LE edema, compression dressings intact.
Breast exam deferred
Neuro: remains CN 2-12 intact, non-focal.
Psych: Normal mood and affect.
03/03/24 21:55 Blood/Venous Blood Culture - Preliminary
No Growth in 24 hours- Final report to follow
03/03/24 21:14 Blood/Venous Blood Culture - Preliminary
No Growth in 24 hours- Final report to follow
03/02/24 22:46 Blood/Venous Blood Culture - Preliminary
Streptococcus agalactiae
03/02/24 22:46 Blood/Venous Gram Stain - Final
03/02/24 22:46 Blood/Venous Blood Culture - Preliminary
Streptococcus agalactiae
03/02/24 22:46 Blood/Venous Gram Stain - Final
03/02/24 23:19 Urine Urine Culture - Final
No Significant Growth
03/03/24 06:06 Nose MRSA Screen - Final
No Methicillin Resistant Staphylococcus aureus isolated.
Breast U/S: Edematous change of the soft tissues of the left breast. No abscess identified. Findings likely due to the recent trauma. Breast carcinoma not excluded. Further evaluation would include a mammogram. This may be performed when the patient
is stronger. Incidental small simple cyst.
Sepsis/bacteremia due to L breast cellulitis:
-related to recent breast trauma
-L breast U/S without abscess
-initial BCxs with Streptococcus agalactiae
-cont IV Ancef as per ID
-Dr. Sprague saw in c/s
-repeat BCxs NGTD
-leukocytosis has resolved
Other problems:
MAR has now been ruled in as Cr improved from 1.1 to 0.7
Generalized weakness: PT/OT
Hypokalemia, resolved
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
Essential HTN with hypertensive urgency: cont cardizem/BB. Increase Hydralazine to 50mg PO TID.
HLD: cont statin
OA
FULL/Heparin
Anticipated Discharge: Within 24 hours
Subjective/Interval History
-
Date of Service: March 05, 2024
No new complaints.
Objective Data
-
Labs:
Laboratory Results
03/05/24
05:29
WBC 10.7
Hgb 11.4 L
Hct 34.1 L
Plt Count 161
Sodium 139
Potassium 3.6
Chloride 109 H
Carbon Dioxide 24
BUN 19 H
Creatinine 0.7
Glucose 100 H
Calcium 8.6
Vital Signs:
Vital Signs
Temp Pulse Resp BP Pulse Ox
98.6 F 70 16 175/61 93
03/05/24 07:15 03/05/24 07:15 03/05/24 07:15 03/05/24 07:15 03/05/24 07:15
I&O
03/04/24 03/05/24 03/06/24
06:59 06:59 06:59
Intake Total 720 / 720 1200 / 1200
Output Total 425 / 425 850 / 850
Balance 295 / 295 350 / 350
[2024-03-05 12:00] VITALS: BP 167/52
[2024-03-05 13:18] VITALS: BP 182/66; PULSE 68; O2SAT 97
--- NOTE | 2024-03-05 13:20 | W.PN.ID1 ---
Date of Service
Date of Service: March 05, 2024
Today's Communication
Continue antibiotics.
Assessment / Plan
Left breast cellulitis
Group B strep bacteremia
Leukocytosis
Fever
Lower extremity venous insufficiency
HTN
Dyslipidemia
Osteoarthritis
Hx melanoma
Recommendations:
Improved cellulitis noted.
Continue with cefazolin 2 g IV every 8 hours for today, but if remains stable overnight, can transition to oral Keflex 500 mg p.o. 4 times daily to complete an additional 10 days of therapy.
Repeat blood cultures no growth to date. Will continue to follow.
Follow white count and temperature curve
Chief Complaint
-: Cellulitis and Bacteremia
Subjective / Review of Systems
Review of Systems: No Fever and No Chills
Vital Signs / Physical Exam
Vital Signs
Vital Signs
Temp Pulse Resp BP Pulse Ox
98.6 F 64 16 167/52 93
03/05/24 07:15 03/05/24 12:00 03/05/24 07:15 03/05/24 12:00 03/05/24 07:15
Physical Exam
Constitutional: No Acute Distress, Comfortable and Non-toxic
Eyes: Sclera Anicteric
Cardiovascular: S1/S2; Negative S3/S4
Pulmonary: Non Labored
Skin: Other (Left breast with decreased erythema. Decreased induration. No tenderness. Mild warmth.)
Neurological: Awake and Alert
Psychological: Calm
Objective Data
Lab Data
Lab Results
03/05/24 05:29
03/05/24 05:29
Estimated Creat Clear 74 ml/min 03/05/24 05:29
Lactic Acid Cancelled 03/03/24 02:45
Total Bilirubin 1.2 mg/dl (0.2-1.3) 03/02/24 22:46
AST 26 U/L (14-36) 03/02/24 22:46
ALT 16 U/L (0-35) 03/02/24 22:46
Alkaline Phosphatase 98 U/L (38-126) 03/02/24 22:46
Most recent labs reviewed.
Micro Results:
03/02/24 22:46 Blood Culture - Final
Blood/Venous Streptococcus agalactiae
Gram Stain - Final
03/02/24 22:46 Blood Culture - Final
Blood/Venous Streptococcus agalactiae
Gram Stain - Final
03/03/24 21:55 Blood Culture - Preliminary
Blood/Venous No Growth in 24 hours- Final report to follow
03/03/24 21:14 Blood Culture - Preliminary
Blood/Venous No Growth in 24 hours- Final report to follow
03/02/24 23:19 Urine Culture - Final
Urine No Significant Growth
03/03/24 06:06 MRSA Screen - Final
Nose No Methicillin Resistant Staphylococcus aureus isolated.
[2024-03-05 14:30] VITALS: BP 117/73
[2024-03-05] MEDS: APRESOLINE 50 MG PO ×2 (15:00→22:59)
[2024-03-05 15:15] VITALS: BP 161/55
--- NOTE | 2024-03-05 16:11 | PTCARENOTE ---
Moris Hoff, at bedside, asking if xray of L hip can be obtained, or if ortho consult is possible while patient is in hospital. Dr. Johnathan betancourt.
[2024-03-05 22:52] VITALS: BP 171/65
[2024-03-06] MEDS: ANCEF 10 IV (06:11)
[2024-03-06 06:59] LABS: Hematocrit 31.4 % (37.0-47.0); Hemoglobin 10.8 g/dL (12.0-16.0); Mean Corp Hgb Conc. 34.4 g/dL (33.0-37.0); Mean Corpuscular Hgb 31.4 pg (27.0-31.0); Mean Corpuscular Volume 91.3 fL (81.0-99.0); Platelet Count 171 10^3/uL (130-400); Red Blood Cell Count 3.44 10^6/uL (4.20-5.40); Red Cell Dist. Width 14.9 % (11.5-14.5); White Blood Cell Count 9.7 10^3/uL (4.8-10.8)
[2024-03-06 07:10] VITALS: BP 150/79
[2024-03-06 07:24] LABS: Blood Urea Nitrogen 18 mg/dl (7-17); Calcium 8.6 mg/dl (8.4-10.2); Carbon Dioxide 22 mmol/L (22-30); Chloride 110 mmol/L (98-107); Estimated Creatinine Clearance 86 ml/min; Glucose 109 mg/dl (70-99); Potassium 3.4 mmol/L (3.5-5.1); Sodium 139 mmol/L (135-145); eGFR > 60.00
--- NOTE | 2024-03-06 07:33 | W.PN.HOSP.TC ---
Addendum entered and electronically signed by Evan Mann MD 03/06/24 11:31:
Total time spent on d/c = 35 min. This included today's physical exam, progress note, review of laboratory and diagnostic data, preparation of discharge documents and prescriptions, and discussions about the pt's hospital course and discharge plan
with the patient and other medical director/head team physician involved in the patient's care.
Original Note:
Today's Communication/Plan
-
d/c
Assessment / Plan
Assessment / Plan
Gen: continues to remain NAD, Awake and alert
Eyes: EOMI, PERRLA, no scleral icterus.
Neck: supple.
CV: RRR, +S1/S2, no m/r/g.
Resp: CTAB anteriorly, no rales, wheezes, or rhonchi.
Abd: +BS, soft, NT, ND
Breast exam deferred
Neuro: continues to remain CN 2-12 intact, non-focal.
Psych: Normal mood and affect.
03/03/24 21:55 Blood/Venous Blood Culture - Preliminary
No Growth in 48 hours- Final report to follow
03/03/24 21:14 Blood/Venous Blood Culture - Preliminary
No Growth in 48 hours- Final report to follow
03/02/24 22:46 Blood/Venous Blood Culture - Final
Streptococcus agalactiae
03/02/24 22:46 Blood/Venous Gram Stain - Final
03/02/24 22:46 Blood/Venous Blood Culture - Final
Streptococcus agalactiae
03/02/24 22:46 Blood/Venous Gram Stain - Final
03/02/24 23:19 Urine Urine Culture - Final
No Significant Growth
03/03/24 06:06 Nose MRSA Screen - Final
No Methicillin Resistant Staphylococcus aureus isolated.
Breast U/S: Edematous change of the soft tissues of the left breast. No abscess identified. Findings likely due to the recent trauma. Breast carcinoma not excluded. Further evaluation would include a mammogram. This may be performed when the patient
is stronger. Incidental small simple cyst.
Sepsis/bacteremia due to L breast cellulitis:
-related to recent breast trauma
-L breast U/S without abscess
-initial BCxs with Streptococcus agalactiae
-cont IV Ancef as per ID for now, d/c on 10 days Keflex
-Dr. Sprague saw in c/s
-repeat BCxs NGTD
-leukocytosis has resolved
L hip pain:
-subacute
-highly doubt acute pathology but will check L hip Xray.
-OK to work with PT in the meantime
Other problems:
MAR has now been ruled in as Cr improved from 1.1 to 0.7
Generalized weakness: PT/OT
Hypokalemia, resolved
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
Essential HTN with hypertensive urgency: cont cardizem/BB/Hydralazine
HLD: cont statin
OA
FULL/Heparin
Medically cleared for d/c pending L hip Xray. Case management aware. Called patient's son and left a message.
Anticipated Discharge: Today
Subjective/Interval History
-
Date of Service: March 06, 2024
c/o chronic B/L knee pain and more recent L hip pain.
Objective Data
-
Labs:
Laboratory Results
03/06/24
06:29
WBC 9.7
Hgb 10.8 L
Hct 31.4 L
Plt Count 171
Sodium 139
Potassium 3.4 L
Chloride 110 H
Carbon Dioxide 22
BUN 18 H
Creatinine 0.6
Glucose 109 H
Calcium 8.6
Vital Signs:
Vital Signs
Temp Pulse Resp BP Pulse Ox
98.5 F 74 20 150/79 95
03/06/24 07:10 05/03/24 07:10 03/06/24 07:10 03/06/24 07:10 03/06/24 07:10
I&O
03/05/24 03/06/24 03/07/24
06:59 06:59 06:59
Intake Total 1200 / 1200 780 / 780
Output Total 850 / 850 375 / 375
Balance 350 / 350 405 / 405
[2024-03-06 08:35] VITALS: BP 186/69; PULSE 70; O2SAT 97
[2024-03-06 08:40] VITALS: BP 186/69; PULSE 70; O2SAT 97
[2024-03-06] MEDS: HEPARIN 5000 UNITS SC (09:09)
[2024-03-06] MEDS: CLARITIN 10 MG PO (09:09)
[2024-03-06] MEDS: TOPROL XL 100 MG PO (09:09)
[2024-03-06] MEDS: LIPITOR 10 MG PO (09:09)
[2024-03-06] MEDS: MOTRIN 400 MG PO (09:09)
[2024-03-06] MEDS: CARDIZEM CD 360 MG PO (09:09)
[2024-03-06] MEDS: APRESOLINE 50 MG PO ×2 (09:09→16:16)
[2024-03-06] MEDS: HYDROPHOR 1 APPLIC TOPICAL (09:10)
--- NOTE | 2024-03-06 09:37 | W.PN.ID1 ---
Date of Service
Date of Service: March 06, 2024
Today's Communication
Continue antibiotics. Transition to oral Keflex.
Assessment / Plan
Left breast cellulitis
Group B strep bacteremia
Leukocytosis
Fever
Lower extremity venous insufficiency
HTN
Dyslipidemia
Osteoarthritis
Hx melanoma
Recommendations:
Ongoing improvement of left breast erythema noted.
Will transition to oral Keflex 500 mg 4 times daily, to continue through 03/16/24
Chief Complaint
-: Cellulitis and Bacteremia
Subjective / Review of Systems
Review of Systems: No Fever and No Chills
Vital Signs / Physical Exam
Vital Signs
Vital Signs
Temp Pulse Resp BP Pulse Ox
98.5 F 74 20 150/79 95
03/06/24 07:10 03/06/24 07:10 03/06/24 07:10 03/06/24 07:10 03/06/24 07:10
Physical Exam
Constitutional: No Acute Distress, Comfortable and Non-toxic
Eyes: Sclera Anicteric
Cardiovascular: S1/S2; Negative S3/S4
Pulmonary: Non Labored
Gastrointestinal: Soft and Non Tender
Skin: Other (Left breast area with decreased erythema and induration. No tenderness.)
Neurological: Awake and Alert
Psychological: Calm
Objective Data
Lab Data
Lab Results
03/06/24 06:29
03/06/24 06:29
Estimated Creat Clear 86 ml/min 03/06/24 06:29
Lactic Acid Cancelled 03/03/24 02:45
Total Bilirubin 1.2 mg/dl (0.2-1.3) 03/02/24 22:46
AST 26 U/L (14-36) 03/02/24 22:46
ALT 16 U/L (0-35) 03/02/24 22:46
Alkaline Phosphatase 98 U/L (38-126) 03/02/24 22:46
Most recent labs reviewed.
Micro Results:
03/03/24 21:55 Blood Culture - Preliminary
Blood/Venous No Growth in 48 hours- Final report to follow
03/03/24 21:14 Blood Culture - Preliminary
Blood/Venous No Growth in 48 hours- Final report to follow
03/02/24 22:46 Blood Culture - Final
Blood/Venous Streptococcus agalactiae
Gram Stain - Final
03/02/24 22:46 Blood Culture - Final
Blood/Venous Streptococcus agalactiae
Gram Stain - Final
03/02/24 23:19 Urine Culture - Final
Urine No Significant Growth
03/03/24 06:06 MRSA Screen - Final
Nose No Methicillin Resistant Staphylococcus aureus isolated.
[2024-03-06] MEDS: KEFLEX 500 MG PO (12:13)
[2024-03-06] MEDS: KLOR-CON 40 MEQ PO (12:56)
[2024-03-06 13:42] LABS: COVID-19 Antigen Negative (Negative)
[2024-03-06] MEDS: MIRALAX 17 GRAMS PO (13:53)
[2024-03-06] MEDS: DULCOLAX 10 MG RECTAL (13:58)
[2024-03-06 14:12] VITALS: BP 186/69; PULSE 70; O2SAT 97
[2024-03-06 15:05] VITALS: BP 153/47
--- NOTE | 2024-03-06 15:34 | CM ---
Patient has been medically cleared for discharge to [facility] for penitentiary and rehab services. Transport scheduled for 4:30PM.
NURSE TO NURSE REPORT # [phone]
FAX # [phone]
== END 2024-03-06 16:45 | DRG 872 ==
LOC: 2 NORTH 03:34
PROVIDERS: Student in an Organized Health Care Education/Training Program; ADMITTING PHYSICIAN Internal Medicine; ATTENDING PHYSICIAN Internal Medicine; CONSULT PHYSICIAN Internal Medicine Infectious Disease; CONSULT PHYSICIAN Surgery; EMERGENCY PHYSICIAN Emergency Medicine; FAMILY PHYSICIAN Internal Medicine
DX: A41.9 Sepsis, unspecified organism (principal); Z68.41 Body mass index [BMI] 40.0-44.9, adult; I10 Essential (primary) hypertension; E78.00 Pure hypercholesterolemia, unspecified; B95.1 Streptococcus, group B, as the cause of diseases classified elsewhere; E87.6 Hypokalemia; M17.0 Bilateral primary osteoarthritis of knee; E86.0 Dehydration; I16.0 Hypertensive urgency; E66.01 Morbid (severe) obesity due to excess calories; N61.0 Mastitis without abscess; D72.829 Elevated white blood cell count, unspecified; Z88.0 Allergy status to penicillin; Z88.5 Allergy status to narcotic agent; Z85.820 Personal history of malignant melanoma of skin; Z87.01 Personal history of pneumonia (recurrent); Z11.52 Encounter for screening for COVID-19
CPT/HCPCS: 51701; 73502; 76642; 80048; 80053; 81003; 81015; 82550; 83605; 85025; 85027; 87040; 87070; 87086; 87149; 87205; 87811; 93005; 96361; 96374; 96375; 97110; 97163; 97166; 97530; 97535; 99285

== ENCOUNTER → 2024-05-14 11:12 | Outpatient (REF) | payer MEDICARE, OTHER, SELFPAY ==
[2024-05-14 16:04] LABS: Blood Urea Nitrogen 21 mg/dl (7-17); Calcium 8.8 mg/dl (8.4-10.2); Carbon Dioxide 29 mmol/L (22-30); Chloride 104 mmol/L (98-107); Glucose 90 mg/dl (70-99); Sodium 140 mmol/L (135-145); eGFR > 60.00
== END ==
LOC: HWLAB 11:12
PROVIDERS: ATTENDING PHYSICIAN Internal Medicine
DX: R78.81 Bacteremia (principal)
CPT/HCPCS: 36415; 80048

== ENCOUNTER 2025-04-23 17:24 | Inpatient (IN) | payer MEDICARE, OTHER, SELFPAY ==
[2025-04-23] VITALS (11 sets, daily range): BP systolic 65–176; BP diastolic 51–63; BMI 39.4; BMI 39.6
--- NOTE | 2025-04-23 14:02 | ED.MUSCINJ ---
HPI-Injury
General
Chief Complaint: Fall
Source: patient
Exam Limitations: none
Time Seen by Provider: 04/23/25 13:40
Nursing documentation reviewed up to this point in time: agreed with
History of Present Illness-Injury
Initial Injury comments:
84-year-old female with history of HTN, HLD, bilateral knee pain 'not a candidate' for knee replacements, presents from home after a fall. States 'my knees gave out again.' she was not feeling well yesterday, felt nauseous, chilled, so turned off
air conditioning, in bed most of day.
Today, got OOB, leaning on walker, knees gave out and 'I slid down the side of the bed, I didn't fall.' Denies any injury from this event
Eating and drinking well, didn't answer phone today three times when friends called her, finally called on friend back and told her she was laying on the floor since 4 a.m. Friend went right over and called EMS
Pt presents in NAD, states she did note redness in her left leg this a.m.
She denies fever, denies v/d/c. Was nauseous yesterday but denies now. Denies pain in the reddened leg. Denies CP, SOB.
Past History
Past History
ED Past Medical History: HTN, Hypercholesterolemia, Other (Patient has a remote history of melanoma removed from her back 10 years ago. No chemotherapy or radiation.) and Other (Prior history of pneumonia)
ED Past Surgical History: Other (Melanoma resection from her back and left axillary node dissection which had a single positive for melanoma 10 years ago)
Social History
Tobacco: Non-smoker
Alcohol: None
Living: alone
Family History
Family History: Negative Diabetes, Hypertension, Early CAD, Asthma or Cancer
Review of Systems
Review of Systems
Allergies reviewed?: Yes
All Other Systems: ROS reviewed and negative except as documented in HPI and ROS
Constitutional: Reports fatigue; Denies fever
Respiratory: Denies trouble breathing
Cardiac: Denies chest pain or syncope
ABD/GI: Reports nausea and anorexia; Denies abdominal pain, vomiting or diarrhea
: Denies dysuria, frequency, incontinence or difficulty voiding
Skin: Reports other (Redness, warmth, swelling left lower extremity)
Neurological: Reports no symptoms
Phy Exam
Physical Exam
Physical Exam:
GENERAL: No acute distress. A&Ox3.
CONSTITUTIONAL: Afebrile.
EYES: clear, conjunctivae normal
ENMT: moist mucus membranes, Pharynx nl
RESPIRATORY: Regular respirations, nonlabored, lungs clear.
CARDIOVASCULAR: Regular rate and rhythm, no murmurs, no rubs.
GI: Soft, nontender, normal BS
MUSCULOSKELETAL: Left lower extremity with warmth and erythema from mid thigh down to mid al. Both ankles with crusty flaking from old healing wounds. Moves with ease. Well perfused.
SKIN: Warm, dry, pale
PSYCH: Normal mood and affect. Well kept, interactive and appropriate
NEUROLOGIC: Awake, alert and oriented. No focal neurological deficits
Injury Course
Orders/Labs/Results
Orders:
Orders
04/23/25
Lactic Acid Q4H
Comment: CANCEL 2nd LACTIC ACID IF 1st LACTIC ACID IS LESS THAN 2
04/23/25 Breakfast
Cholesterol Lowering
At Your Request: Full Participation
Does patient need a safe tray?: No
04/23/25 14:14
US Periph Venous LOWER Ext LT Urgent
Comment:
Reason For Exam: red, warm, swollen
04/23/25 14:15
IV Insert/Care/Rem.- Treatment PRN
04/23/25 14:16
Straight cath- Treatment ONCE
0.9% Sodium Chloride 1000 ml [Nss] 1,000 ml IV BOLUS
04/23/25 14:32
CPK Isoenzyme Urgent
Complete Blood Count/With Diff Urgent
Comprehensive Metabolic Panel Urgent
Manual Differential Urgent
Blood Culture Q30M
COSME Source: Blood/Venous
Specimen Description:
04/23/25 15:00
Urinalysis Reflex To Culture Urgent
Date Specimen was Collected: 04/23/25
Time Specimen was Collected: 14:34
Urine Microscopic Reflex Cult Urgent
Blood Culture Q30M
COSME Source: Blood/Venous
Specimen Description:
04/23/25 15:46
0.9% Sodium Chloride 1000 ml [Nss] 1,000 ml IV BOLUS
04/23/25 16:06
CeFAZolin 1 GRAM [Ancef] 1 gram in 5 ml IV NOW
04/23/25 16:10
Vancomycin [Vancocin] 2,000 mg 0.9% Sodium Chloride 500 ml [Nss] 500 ml IV NOW
04/23/25 16:14
CeFAZolin 2 GRAM [Ancef] 2 grams in 10 ml IV NOW
04/23/25 16:39
Admit/Transfer Patient As Directed
Co-Sign Provider:
Level of Care: Inpatient admission
Assign to:: Telemetry
Physician / Group: song
Diagnosis: cellulitis
Reason for Telemetry: Arrhythmia
Date to Stop Telemetry: 04/26/25
Time to Stop Telemetry: 11:00
Reason for Hospitalization: cellulitis
Expected length of stay greater than two midnights?: Yes
ELOS- Estimated Length of Stay in days: 3
I certify the patient meets the requirements for IP care: Yes
PRN Pain Medication Management As Directed
May give lesser potent ordered pain med per pt: Yes
preference::
Protocol:: Medication orders for pain may be administered in a
manner that supports deferring to patient preference
when the pt is:
- Requesting an ordered lesser potent pain medication.
Least to most potent pain medications are defined
as: acetaminophen < NSAID < tramadol < opioids
(morphine, oxycodone, hydromorphone).
- Requesting a lesser dose of the same medication IF
ORDERED.
- Requesting a less intrusive route of administration
if both routes are prescribed by the provider (PO <
IV).
04/23/25 16:40
Code Status As Directed
Resuscitation Status: Full Code
04/23/25 16:51
Heparin 8,600 units IV NOW STA
Heparin Protocol- PTT Orders As Directed
PTT per Heparin protocol: -Obtain CBC and baseline PTT - if not already collected.
-Obtain PTT 6 hours from start of infusion. Then, every 6 hours until 2 consecutive
PTT's are therapeutic. Then, PTT Daily.
-With each rate change, obtain PTT every 6 hours until 2 consecutive PTT's are
therapeutic. Then, PTT Daily.
Notify MD As Directed
Notify physician if: PTT is greater than or equal to 200.
04/23/25 16:53
PRN Pain Medication Management As Directed
May give lesser potent ordered pain med per pt: Yes
preference::
Protocol:: Medication orders for pain may be administered in a
manner that supports deferring to patient preference
when the pt is:
- Requesting an ordered lesser potent pain medication.
Least to most potent pain medications are defined
as: acetaminophen < NSAID < tramadol < opioids
(morphine, oxycodone, hydromorphone).
- Requesting a lesser dose of the same medication IF
ORDERED.
- Requesting a less intrusive route of administration
if both routes are prescribed by the provider (PO <
IV).
04/23/25 16:57
INFECTIOUS DISEASE CONSULT Routine
Consulting Provider: Martha Mckoy
Was physician already notified: Yes
04/23/25 17:00
Heparin 80761 Units/250 ml 25,000 units in 250 ml IV PER PROTOCOL
Weight to be used for heparin protocol in kilograms (kg):: 107.5
Protocol:: DVT/PE
PTT Goal Range to be used:: PTT 73 to 111 seconds
Order type:: Initial
INITIAL Infusion Dose (UNITS/KG/hr) & then follow protocol:: 18 units/kg/hr
Infusion Dose in UNITS/hr & then follow protocol (UNITS/hr):: 1,900
INFUSION RATE in mL/hr & then follow protocol (mL/hr):: 19
For DVT/PE algorithm, re-bolus for low PTT?: Yes
PTT less than or equal to 64 seconds:: Re-bolus 80 units/kg (max 10,000units). Increase by 400 units/hr
(+ 4mL/hr)
PTT 64.1 to 72.9 seconds:: Re-bolus 40 units/kg (max 5,000 units). Increase by 200 units/hr
(+ 2mL/hr)
PTT 73 to 111 seconds:: Target Range. No change in rate.
PTT 111.1 to 130.9 seconds:: Decrease rate by 200 units/hr (- 2 mL/hr)
PTT 131 to 199.9 seconds:: HOLD for 1 hr. Then decrease by 300 units/hr (- 3mL/hr)
PTT greater than or equal to 200 seconds:: HOLD for 2 hrs & Notify Provider. Then decrease by 400 units/hr
(- 4mL/hr)
Lab follow-up:: Each change, PTT q6h until 2 consecutive are therapeutic. Then
PTT daily.
04/23/25 17:54
0.9% Sodium Chloride 1000 ml [Nss] 1,000 ml IV 80 mls/hr
VANCOMYCIN Pharmacy to Dose [VANCOCIN Pharmacy to Dose] 1 each Pharmacy To Prepare [Call Pharmacy To Prepare] 0 ml IV PER PROTOCOL
04/23/25 17:54
WOUND/OSTOMY CONSULT Routine
Reason for Consult: left LE wound
Heparin Protocol- PTT Orders As Directed
PTT per Heparin protocol: -Obtain CBC and baseline PTT - if not already collected.
-Obtain PTT 6 hours from start of infusion. Then, every 6 hours until 2 consecutive
PTT's are therapeutic. Then, PTT Daily.
-With each rate change, obtain PTT every 6 hours until 2 consecutive PTT's are
therapeutic. Then, PTT Daily.
Activity As Directed
Activity Level: Bedrest
Intake/ Output As Directed
Frequency: Per unit guidelines
Notify MD As Directed
Notify physician if: PTT is greater than or equal to 200.
Vital Signs As Directed
Frequency: Per unit guidelines
Ot Eval And Treat Routine
Pt Eval And Treat Routine
Activity Level: As Tolerated
DX Deep Vein Thrombosis Video Routine
04/23/25 19:41
Complete Blood Count/No Diff Urgent
Comment: Obtain baseline before beginning heparin infusion if not already collected
PTT Urgent
Comment: Obtain baseline before beginning heparin infusion if not already collected
04/23/25 22:00
Cefepime HCl [Maxipime] 1,000 mg IV Q12H
HydrALAZINE [Apresoline] 50 mg PO TID
04/24/25 06:00
Basic Metabolic Panel IN AM
CPK [Creatine Phosphokinase] IN AM
Complete Blood Count/No Diff IN AM
04/24/25 08:00
Atorvastatin [Lipitor] 10 mg PO DAILY
Diltiazem Extended Release [Cardizem Cd] 360 mg PO DAILY
Loratadine [Claritin] 10 mg PO Q48H
Metoprolol Xl [Toprol Xl] 100 mg PO DAILY
04/25/25 06:00
Basic Metabolic Panel IN AM
CPK [Creatine Phosphokinase] IN AM
Complete Blood Count/No Diff IN AM
Complete Blood Count/No Diff Q2D
Comment: Notify MD if platelet count is <130,000 or decreases by 50% from baseline
04/26/25 06:00
Basic Metabolic Panel IN AM
CPK [Creatine Phosphokinase] IN AM
Complete Blood Count/No Diff IN AM
04/26/25 11:00
DC Protocol for Telemetry ONCE
04/27/25 06:00
CPK [Creatine Phosphokinase] IN AM
Complete Blood Count/No Diff IN AM
Complete Blood Count/No Diff Q2D
Comment: Notify MD if platelet count is <130,000 or decreases by 50% from baseline
04/29/25 06:00
Complete Blood Count/No Diff Q2D
Comment: Notify MD if platelet count is <130,000 or decreases by 50% from baseline
05/01/25 06:00
Complete Blood Count/No Diff Q2D
Comment: Notify MD if platelet count is <130,000 or decreases by 50% from baseline
05/03/25 06:00
Complete Blood Count/No Diff Q2D
Comment: Notify MD if platelet count is <130,000 or decreases by 50% from baseline
05/05/25 06:00
Complete Blood Count/No Diff Q2D
Comment: Notify MD if platelet count is <130,000 or decreases by 50% from baseline
05/07/25 06:00
Complete Blood Count/No Diff Q2D
Comment: Notify MD if platelet count is <130,000 or decreases by 50% from baseline
05/09/25 06:00
Complete Blood Count/No Diff Q2D
Comment: Notify MD if platelet count is <130,000 or decreases by 50% from baseline
Abnormal Lab Results
04/23/25 04/23/25
14:32 15:00
WBC 21.9 H 10^3/uL
(4.8-10.8)
RBC 3.92 L 10^6/uL
(4.20-5.40)
Hgb 11.9 L g/dL
(12.0-16.0)
Hct 35.6 L %
(37.0-47.0)
RDW 14.9 H %
(11.5-14.5)
Plt Count 118 L 10^3/uL
(130-400)
MPV 11.4 H fL
(7.4-10.4)
Abs Immat Gran (auto) 0.8 H 10^3/uL
(0-0.05)
Absolute Neuts (auto) 18.8 H 10^3/uL
(1.4-6.5)
Absolute Lymphs (auto) 0.9 L 10^3/uL
(1.2-3.4)
Absolute Monos (auto) 1.1 H 10^3/uL
(0.1-0.6)
Immature Gran % 3.8 H %
(0-0.5)
Neutrophils % 85.9 H %
(42.2-75.2)
Lymphocytes % 3.9 L %
(20.5-51.1)
Abs Neuts (Manual) 18.3 H 10^3/uL
(1.4-6.5)
Band Neutrophils 25 H %
(0-3)
Lymphocytes (Manual) 3 L %
(20-51)
BUN 38 H mg/dl
(7-17)
Creatinine 2.0 H mg/dL
(0.6-1.0)
Glucose 113 H mg/dl
(70-99)
Total Creatine Kinase 668 H U/L
(30-135)
CK-MB (CK-2) 3.9 H ng/ml
(0.0-3.4)
Urine Albumin (Reflex) 1+ A
(Neg - Trace)
04/23/25 14:32
04/23/25 14:32
MDM/Problems Addressed
Differential Diagnosis Includes:
Cellulitis, SIRS, Sepsis
MDM/Problems Addressed:
84-year-old female with history of HTN, HLD, bilateral knee pain 'not a candidate' for knee replacements, presents from home after a fall. States 'my knees gave out again.' she was not feeling well yesterday, felt nauseous, chilled, so turned off
air conditioning, in bed most of day.
Today, got OOB, leaning on walker, knees gave out and 'I slid down the side of the bed, I didn't fall.' Denies any injury from this event
Eating and drinking well, didn't answer phone today three times when friends called her, finally called on friend back and told her she was laying on the floor since 4 a.m. Friend went right over and called EMS
Pt presents in NAD, states she did note redness in her left leg this a.m.
She denies fever, denies v/d/c. Was nauseous yesterday but denies now. Denies pain in the reddened leg. Denies CP, SOB.
Afebrile, NAD
3: 45 p.m.
CBC: WBC 21.9 with a shift
CMP: showing acute renal failure most likely from dehydration and rhabdomyolysis
CPK 668
U/A neg
(IVFs infusing, second liter ordered)
IV antibiotics ordered
US LLE: Nonocclusive deep venous thrombosis in the left femoral vein.
Hospitalist notified of admission.
*Pulse Oximetry
SaO2: 97
Oxygen Mode of Delivery: Room air
*Critical Care Note
Total Time (30-74mins, 75-104mins- exclusive of procedures): Not Applicable
ED Attending Note
-
Portions of this chart may have been created with voice recognition software.� Occasional wrong word or��sound alike� substitutions may have occurred due to the inherent limitations of voice recognition software.
Discharge Plan
Departure
Patient Disposition: Admit
Date of Disposition: 04/23/25
Time of Disposition: 15:52
Admit to: Med/Surg
Presentation/result/management discussed w/ accepting MD/DO: Hospitalist
Condition: Fair
Discharge Problem:
Cellulitis of left lower extremity, Acute renal failure, Rhabdomyolysis, Acute deep vein thrombosis (DVT) of femoral vein of left lower extremity
Interventions
Interventions:
*Risk Screen - Suicide Last Done: 04/23/25 13:51
*General Assessment Last Done: 04/23/25 13:51
*Neglect/Abuse Screening Last Done: 04/23/25 13:51
*ED- Fall Risk Assessment Last Done: 04/23/25 13:51
*ED COVID-19 Vaccine History Last Done: 04/23/25 13:51
*Nursing Disposition Last Done: 04/23/25 17:57
ED-Musculoskeletal Assessment Last Done: 04/23/25 13:51
ED- Neurological Assessment Last Done: 04/23/25 13:51
ED-Skin Assessment Last Done: 04/23/25 13:51
[2025-04-23] MEDS: NSS 1000 IV ×3 (14:47→20:09)
[2025-04-23 15:01] LABS: Hematocrit 35.6 % (37.0-47.0); Hemoglobin 11.9 g/dL (12.0-16.0); Mean Corp Hgb Conc. 33.4 g/dL (33.0-37.0); Mean Corpuscular Hgb 30.4 pg (27.0-31.0); Mean Corpuscular Volume 90.8 fL (81.0-99.0); Mean Platelet Volume 11.4 fL (7.4-10.4); Platelet Count 118 10^3/uL (130-400); Red Blood Cell Count 3.92 10^6/uL (4.20-5.40); Red Cell Dist. Width 14.9 % (11.5-14.5); White Blood Cell Count 21.9 10^3/uL (4.8-10.8)
[2025-04-23 15:16] LABS: ALT (SGPT) 15 U/L (0-35); AST (SGOT) 35 U/L (14-36); Alkaline Phosphatase 69 U/L (38-126); Blood Urea Nitrogen 38 mg/dl (7-17); Calcium 8.9 mg/dl (8.4-10.2); Carbon Dioxide 26 mmol/L (22-30); Chloride 107 mmol/L (98-107); Estimated Creatinine Clearance 25 ml/min; Glucose 113 mg/dl (70-99); Sodium 142 mmol/L (135-145); Total CK 668 U/L (30-135); Total Protein 7.4 g/dl (6.3-8.2); eGFR 24.03
[2025-04-23 15:31] LABS: Absolute Neutrophils -Man Diff 18.3 10^3/uL (1.4-6.5); Band Neutrophils 25 % (0-3); Lymphocytes 3 % (20-51); Metamyelocytes 8 % (-); Monocytes 4 % (2-9); Myelocytes 1 % (-); Segmented Neutrophils 59 % (42-75)
[2025-04-23 15:33] LABS: Normal RBC Morphology Yes; Total Cells Counted 100
[2025-04-23 15:34] LABS: Platelets Checked Yes
[2025-04-23 15:34] LABS: Lactic Acid 1.9 mmol/L (0.7-2.0)
[2025-04-23 15:39] LABS: % Basophils 0.4 % (0-2); % Immature Granulocytes 3.8 % (0-0.5); % Lymphocytes 3.9 % (20.5-51.1); % Neutrophils 85.9 % (42.2-75.2); Absolute Basophils 0.1 10^3/uL (0-0.2); Absolute Eosinophils 0.2 10^3/uL (0-0.7); Absolute Immature Granulocytes 0.8 10^3/uL (0-0.05); Absolute Lymphocytes 0.9 10^3/uL (1.2-3.4); Absolute Monocytes 1.1 10^3/uL (0.1-0.6); Absolute Neutrophils 18.8 10^3/uL (1.4-6.5); Nucleated Red Blood Cells % 0 %
[2025-04-23 15:43] LABS: Urine Albumin 1+ (Neg - Trace); Urine Bilirubin Negative (Negative); Urine Character Clear (Clear); Urine Color Yellow; Urine Glucose Negative (Negative); Urine Ketone Negative (Negative); Urine Leukocyte Negative (Negative); Urine Nitrite Negative (Negative); Urine Occult Blood Negative (Negative); Urine Specific Gravity 1.015 (<1.030); Urine Urobilinogen Negative (Neg - 1+)
[2025-04-23 16:09] LABS: Urine Red Blood Cell 0-2 /HPF (0-2)
--- NOTE | 2025-04-23 16:12 | HPS.HSE ---
Family Physician
-
Family Physician: Nat Parry
Chief Complaint
-
fall
History of Present Illness
84-year-old female with history of HTN, HLD, bilateral knee pain 'not a candidate' for knee replacements, presents from home after a fall. she was not feeling well yesterday, felt nauseous, chilled, so turned off air conditioning, in bed most of
day.
Today, got OOB, leaning on walker, knees gave out and 'I slid down the side of the bed. she landed on the floor on her buttocks. she was not able to get up. she was on the floor for 8hours. denied hitting head on the floor. when she got to the
hospital noted left LE swelling and redness. her thigh are swollen and red. patient has chronic LE wound, which she used follow wound care at [facility].she does not anymore. she only washes the wound with soap and water. denied fever, cough,congestion,
chest pain, fever. denied abdominal pain,n,v,d. denied dysuria or hematuria.
upon arrival she was noted in MAR, non Occlusive DVT and cellulitis. Patient received cefazolin, Vanco, # x 2 bag in the ER. Blood culture sent from ER. Admitting for further management
Medical History
Past Medical History
Past Medical History: Reports Other
Additional Past Medical History:
HTN, HLD, OA, melanoma
Past Surgical History: Reports Other
Additional Past Surgical History:
Melanoma resection from her back and left axillary node dissection
Social History
Tobacco: Non-smoker
Alcohol: None
Drug: None
Personal: Single
Living: Alone
Family History
Family History: Not pertinent
Allergies / Home Medications
Allergies reflects when Allergies were last updated in [employer].
Home Medications with original date entered in [employer]
Allergy/Medication List:
Allergies
Allergy/AdvReac Type Severity Reaction Status Date / Time
amoxicillin Allergy Unknown Verified 02/05/11 07:39
hydrocodone Allergy Unknown Verified 02/05/11 07:39
Penicillins Allergy Unknown Verified 02/05/11 07:39
Home Medications
atorvastatin 10 mg tablet 10 mg PO DAILY High Cholesterol 03/03/24
fexofenadine 180 mg tablet ([place]) 180 mg PO DAILY Allergies 03/03/24
metoprolol succinate 100 mg tablet,extended release 24 hr 100 mg PO DAILY Heart Failure 03/03/24
hydralazine 50 mg tablet 50 mg PO TID #0 tabs 03/06/24
diltiazem HCl 360 mg capsule,24 hr,extended release 360 mg PO DAILY 04/23/25
furosemide 20 mg tablet 20 mg PO DAILY 04/23/25
ibuprofen 200 mg tablet (Advil) 400 mg PO TID 04/23/25
Review of Systems
-
Constitutional: Reports No Symptoms
EENT: Reports No Symptoms
Respiratory: Reports No Symptoms
Cardiac: Reports No Symptoms
Abdomen/GI: Reports No Symptoms
: Reports No Symptoms
Musculoskeletal: Reports No Symptoms
Skin: Reports Other (Left lower extremities redness, swelling, wound)
Neurological: Reports No Symptoms
Endocrine: Reports No Symptoms
Hematologic/Lymphatic: Reports No Symptoms
Psych: Reports No Symptoms
Physical Exam
Vital Signs
Vital Signs
Temp Pulse Resp BP Pulse Ox
98.8 F 78 23 171/55 96
04/23/25 13:41 04/23/25 15:05 04/23/25 15:05 04/23/25 15:05 04/23/25 15:00
Physical Exam
General: Well Developed, Well Nourished and No Apparent Distress
HEENT: NormoCephalic, Moist mucous membranes and Atraumatic
Respiratory: Clear
Cardiac: S1/S2 and Regular Rhythm; No Murmur or Rub
GI: Soft, Non Tender, Non Distended and Normal Bowel Sounds; No Organomegaly
Rectal: Deferred by Provider
Musculoskeletal: No Clubbing, No Cyanosis and No Edema
Skin: Rash and Other (Left lower extremities wound, swelling and redness)
Neuro: AO x 3 and Nonfocal/grossly intact
Psych: Calm
Laboratory Results
-
04/23/25 14:32
04/23/25 14:32
Laboratory Results
Lactic Acid 1.9 mmol/L (0.7-2.0) 04/23/25 Unknown
Total Bilirubin 1.0 mg/dl (0.2-1.3) 04/23/25 14:32
AST 35 U/L (14-36) 04/23/25 14:32
ALT 15 U/L (0-35) 04/23/25 14:32
Alkaline Phosphatase 69 U/L (38-126) 04/23/25 14:32
Data Reviewed
-
Lab Data: Labs Reviewed by me
Impression/Plan
-
# Left lower extremity cellulitis
- WBC 21.9
-cefepime and vanco continued
-blood culture sent from ER
-Tylenol prn for fever
-CTm
-wound care consulted
# Rhabdomyolysis secondary to the fall and long lie
- CK6 668
- Fluids continued
- Trend CK
- PT/OT consulted
# Acute renal failure likely dehydration
- Creatinine 2.0
- Will hydrate with fluids
- BMP in a.m.
# Nonocclusive DVT in the left femoral vein
- Duplex with impression of Nonocclusive deep venous thrombosis in the left femoral vein
-heparin drip
# Anemia of chronic disease
# Acute thrombocytopenia likely from acute infection
- Hemoglobin stable at 11.9
- No active bleeding
- Continue
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
#Essential HTN with hypertensive urgency: cont Cardizem/BB/Hydralazine
#HLD: cont statin
#OA
FULL/Heparin
[2025-04-23 16:25] LABS: CKMB 3.9 ng/ml (0.0-3.4)
[2025-04-23] MEDS: VANCOCIN 540 MG IV (17:08)
[2025-04-23] MEDS: ANCEF 10 IV (17:13)
--- NOTE | 2025-04-23 18:02 | W.PN.UPDATE ---
Update Note
Progress Note Update
This note serves as an addendum to the H&P by Lucinda Squires on April 23, 2025.
History of Presenting Illness
84-year-old female with past medical history of HTN, HLD, bilateral knee pain (and additional history in assessment/plan section below) 'not a candidate' for knee replacements, presented from home after a fall. She was not feeling well yesterday,
felt nauseous, chilled, and remained in bed most of the day. Today, patient got out of bed, leaned on walker, knees gave out and she said 'I slid down the side of the bed.' She landed on the floor on her buttocks and was not able to get up -- she
was on the floor for approximately 8 hours. She denied hitting her head on the floor, and she clearly stated multiple times that she did not hit her head on the floor or anywhere else. She denied any loss of consciousness, chest pain, shortness of
breath, numbness or tingling. When she got to the hospital, it was noted that she had left lower extremity swelling and redness. Patient has chronic LE wound, which she used follow wound care at [facility] -- but she does not anymore. She only washes the
wound with soap and water. She denied fever, cough,congestion, chest pain, fever.
Vital Signs
Afebrile
HR okay
Blood pressure elevated
RR in low 20s
Good oxygen saturations on room air
Physical Exam
General: Well Developed, Well Nourished and No Apparent Distress
HEENT: Normocephalic, Moist mucous membranes and Atraumatic
Respiratory: Clear to Auscultation Bilaterally
Cardiac: S1/S2 and Regular Rhythm
GI: Soft, Non Tender, Non Distended and Normal Bowel Sounds
Musculoskeletal: No Cyanosis and No Edema
Skin: Rash and Other (Left lower extremities wound, swelling and redness)
Neuro: AO x 3 and Nonfocal/grossly intact
Psych: Calm
Assessment/Plan
# Left lower extremity cellulitis
#Chronic LLE wound
#Leukocytosis
-cefepime and vanco
-blood culture sent from ER
-Tylenol prn for fever
-CTm
-wound care consulted
-ID consulted given significant leukocytosis and degree of infection
#History of Sepsis and bacteremia due to left breast cellulitis related to recent breast trauma
-Had generalized weakness at that time
#Generalized Weakness Suspected from Infection and DVT
#Rhabdomyolysis secondary to the fall and long lie
- CK6 668
- Continue IV fluids
- Reheck CK in the morning
- PT/OT consulted
# Acute renal failure likely from rhabodmyolysis and possibly dehydration
- Creatinine 2.0
- Continue IV fluids
- BMP in a.m.
# Nonocclusive DVT in the left femoral vein
-Duplex with impression of Nonocclusive deep venous thrombosis in the left femoral vein
-Heparin Drip
-Need to control blood pressure with goal SBP<160 mmHg
-CT Head to make sure no bleed
-Activity is bedrest for now
# Anemia of chronic disease
# Acute thrombocytopenia likely from acute infection
- Hemoglobin stable at 11.9
- No active bleeding
- Continue
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
#Essential HTN with hypertensive urgency:
-cont Cardizem/BB/Hydralazine
-Patient did not take any of her home meds on 04/23/25 morning
#HLD
-continue statin
#OA
Code Status: Full Code
DVT Prophylaxis: Heparin Drip
--- NOTE | 2025-04-23 18:54 | PHA.VAN.IN ---
Assessment
- Assessment
Renal Function: SCR Appears Elevated from baseline (05/14/24 BASELINE SCR: 0.9)
Concomitant Antimicrobials: CEFEPIME
- Previous Dosing Experience
Previous Regimen: 1500MG IV Q24H
Date of Regimen: 03/04/24
Provided Trough of: 11.3 PREDICTED
Provided AUC of: 490 PREDICTED
Patient's SCR is: Elevated compared to previous dosing experience (03/04/24 SCR = 0.7)
Patient's weight is: Decreased compared to previous dosing experience (03/04/24 WT = 110.7KG)
Plan
- Plan
Initial / Loading Dose: 2GM
Maintenance Regimen: DOSING BY RANDOM LEVEL
Monitoring: RANDOM VANCOMYIN LEVEL 04/24/25 AM
Pharmacokinetics Vancomycin I
- -
Patient Age: 84
Patient Sex: Female
Vancomycin Day #: 1
Indication: Skin And Soft Tissue (LLE CELLULITIS)
Requesting Provider: ARLETTE
Height / Weight:
Height 5 ft 5 in
Actual Weight 107.955 kg
- Vital Signs / Lab Results
Temp Pulse Resp BP Pulse Ox
99.2 F 81 22 176/54 95
04/23/25 18:15 04/23/25 18:15 04/23/25 18:15 04/23/25 18:15 04/23/25 18:15
Lab Results - Hematology
04/23/25
14:32
WBC 21.9 H
Band Neutrophils 25 H
Lab Results - Chemistry
04/23/25
14:32
BUN 38 H
Creatinine 2.0 H
Estimated Creat Clear 25
Albumin 4.0
04/23/25 04/23/25
14:32 Unknown
Lactic Acid Cancelled 1.9
Lab Results - Urine
04/23/25
15:00
Urine Nitrite (Reflex) Negative
Leukocyte Esterase Rfl Negative
Urine WBC (Reflex) 3-5
Ur Squamous Epith Cells 3-5
[2025-04-23 20:02] LABS: APTT 37.1 Sec (23.4-35.0)
[2025-04-23 20:12] LABS: Hematocrit 30.2 % (37.0-47.0); Hemoglobin 10.5 g/dL (12.0-16.0); Mean Corp Hgb Conc. 34.8 g/dL (33.0-37.0); Mean Corpuscular Hgb 31.2 pg (27.0-31.0); Mean Corpuscular Volume 89.6 fL (81.0-99.0); Mean Platelet Volume 10.9 fL (7.4-10.4); Platelet Count 100 10^3/uL (130-400); Red Blood Cell Count 3.37 10^6/uL (4.20-5.40); Red Cell Dist. Width 14.9 % (11.5-14.5)
[2025-04-23] MEDS: HEPARIN 8600 UNITS IV (20:21)
[2025-04-23] MEDS: HEPARIN 25000 UNITS/250 ML IV (20:23)
[2025-04-23] MEDS: APRESOLINE 50 MG PO (21:00)
[2025-04-23] MEDS: MAXIPIME 1000 MG IV (21:48)
[2025-04-23] MEDS: STERILE WATER FOR INJECTION 10 ML IV (21:48)
[2025-04-24] VITALS (11 sets, daily range): BP systolic 136–182; BP diastolic 44–73; BMI 40.0
[2025-04-24] MEDS: LOPRESSOR 5 MG IV (01:23)
[2025-04-24 03:26] LABS: APTT > 200 Sec (23.4-35.0)
[2025-04-24] MEDS: APRESOLINE 10 MG PO (04:01)
[2025-04-24] MEDS: TOPROL XL 100 MG PO (05:37)
--- NOTE | 2025-04-24 06:34 | PTCARENOTE ---
Patient straight cathed for 800 ml. Bladder scan order in. Patient`s blood pressure at 0500 elevate, per [employer], ok to give metoprolol early.
[2025-04-24] MEDS: CLARITIN 10 MG PO (08:19)
[2025-04-24] MEDS: NSS IV (08:19)
[2025-04-24] MEDS: LIPITOR 10 MG PO (08:19)
[2025-04-24] MEDS: APRESOLINE 50 MG PO ×3 (08:19→21:13)
[2025-04-24] MEDS: CARDIZEM CD 360 MG PO (08:20)
[2025-04-24 09:18] LABS: Hematocrit 30.8 % (37.0-47.0); Hemoglobin 10.3 g/dL (12.0-16.0); Mean Corp Hgb Conc. 33.4 g/dL (33.0-37.0); Mean Corpuscular Hgb 30.2 pg (27.0-31.0); Mean Corpuscular Volume 90.3 fL (81.0-99.0); Platelet Count 90 10^3/uL (130-400); Red Blood Cell Count 3.41 10^6/uL (4.20-5.40); Red Cell Dist. Width 15.2 % (11.5-14.5); White Blood Cell Count 19.5 10^3/uL (4.8-10.8)
[2025-04-24] MEDS: STERILE WATER FOR INJECTION 10 ML IV (10:06)
[2025-04-24] MEDS: NSS 1000 IV (10:07)
[2025-04-24] MEDS: MAXIPIME 1000 MG IV (10:07)
--- NOTE | 2025-04-24 10:21 | W.PN.HOSP.TC ---
Today's Communication/Plan
-
Continue IV fluids
CPK improving
Monitor off of antibiotics
Continue Eliquis
Hematology evaluation tomorrow given thrombocytopenia and DVT -- discussed with hematology -- thrombocytopenia could be from antibiotics
Assessment / Plan
Assessment / Plan
Physical Exam
General: Well Developed, Well Nourished and No Apparent Distress
HEENT: Normocephalic, Moist mucous membranes and Atraumatic
Respiratory: Clear to Auscultation Bilaterally
Cardiac: S1/S2 and Regular Rhythm
GI: Soft, Non Tender, Non Distended and Normal Bowel Sounds
Musculoskeletal: No Cyanosis. Left thigh with some erythema.
Skin: Rash and Other (Left lower extremities wound, swelling and redness)
Neuro: AO x 3 and Nonfocal/grossly intact
Psych: Calm
Assessment/Plan
#UNLIKELY Left lower extremity cellulitis
#Chronic LLE wound
#Leukocytosis - reactive from fall, rhabdomyolysis
-Stop cefepime and vanco and observe, as per ID
-blood cultures pending and NGTD
-wound care consulted
-ID consulted given significant leukocytosis and degree of infection -- they mentioned can stop antibiotics and observe as patient's leukocytosis and thigh signs and symptoms can be explained by DVT, rhabdomyolysis
#History of Sepsis and bacteremia due to left breast cellulitis related to recent breast trauma
-Had generalized weakness at that time
#Generalized Weakness Suspected from DVT
#Rhabdomyolysis secondary to the fall and long lie
- CK 600s initially, now improving with IV fluids
- Continue IV fluids
- Reheck CK in the morning
- PT/OT consulted
# Acute renal failure - RESOLVED - likely from rhabdomyolysis and possibly dehydration
- Creatinine 2.0 --> 1.0
- Continue IV fluids
- BMP in a.m.
# Nonocclusive DVT in the left femoral vein
-Bedrest for now, anticipate starting activity on 04/25/25 or 04/26/25
-Duplex with impression of Nonocclusive deep venous thrombosis in the left femoral vein
-Heparin Drip stopped
-Started Eliquis 10 mg BID x 7 days, followed by 5 mg BID
-Need to control blood pressure with goal SBP<160 mmHg (see below)
-Activity is bedrest for now
# Anemia of chronic disease
# Acute thrombocytopenia likely from acute infection
- Hemoglobin acceptable so far
- No active bleeding
- Continue to monitor CBC
- With regards to likelihood of HIT, the 4Ts score is low
- Low platelets could be due to cephalosporin exposure
- Given patient's new and worsening thrombocytopenia and DVT, consulted hem/onc, I spoke with Dr. Douglas (hem/onc) and okay to continue Eliquis
#History of melanoma with left axillary lymph node removal
#Essential Hypertension with hypertensive urgency
-Continue Cardizem/BB/Hydralazine
-Low sodium diet
-Added Lisinopril 5 mg BID on 04/24/25 for better blood pressure control
#Hyperlipidemia
-Continue statin
#OA
Code Status: Full Code
DVT Prophylaxis: Eliquis
On 04/23/25 and 04/24/25, I called patient's daughter Antionette and answered all of her questions and concerns to satisfaction.
Anticipated Discharge: 24 - 48 hours
Subjective/Interval History
-
Date of Service: April 24, 2025
Patient was seen and examined. She reported feeling fine, and denied any headache, dizziness, chest pain, shortness of breath, numbness or tingling.
Objective Data
-
Labs:
Laboratory Results
04/24/25 04/24/25 04/24/25
02:38 08:47 11:30
WBC 19.5 H
Hgb 10.3 L
Hct 30.8 L
Plt Count 90 L
APTT > 200 H* Pending
Sodium Pending
Potassium Pending
Chloride Pending
Carbon Dioxide Pending
BUN Pending
Creatinine Pending
Glucose Pending
Calcium Pending
04/24/25
11:40
WBC
Hgb
Hct
Plt Count
APTT Pending
Sodium
Potassium
Chloride
Carbon Dioxide
BUN
Creatinine
Glucose
Calcium
Vital Signs:
Vital Signs
Temp Pulse Resp BP Pulse Ox
97.8 F 72 24 160/44 96
04/24/25 07:05 04/24/25 10:18 04/24/25 07:05 04/24/25 10:18 04/24/25 07:05
I&O
04/23/25 04/24/25 04/25/25
06:59 06:59 06:59
Output Total 1600 / 1600
Balance -1600 / -1600
[2025-04-24 10:22] LABS: Vancomycin Random 12.5 ug/ml
[2025-04-24 10:31] LABS: Blood Urea Nitrogen 29 mg/dl (7-17); Calcium 7.9 mg/dl (8.4-10.2); Carbon Dioxide 22 mmol/L (22-30); Chloride 114 mmol/L (98-107); Creatine Phosphokinase 375 U/L (30-135); Estimated Creatinine Clearance 50 ml/min; Glucose 81 mg/dl (70-99); Potassium 3.6 mmol/L (3.5-5.1); Sodium 142 mmol/L (135-145); eGFR 55.21
--- NOTE | 2025-04-24 10:46 | CON.ID ---
Consultation
-
Date/Time Consultation Requested: April 23, 2025 1657
Date/Time Consultation Performed: April 24, 2025 1045
Requesting Provider: Dr. Brett Pink
Performing Provider: Dr. Martha Mckoy
Reason for Consultation: Cellulitis
Chief Complaint / Past History
Chief Complaint
Fall
History of Present Illness
84-year-old female with history of venous stasis, chronic bilateral lower extremity wounds, osteoarthritis of the knees who presented to the ER yesterday after mechanical fall. She reports that she always has knee from arthritis but not candidate
for knee replacement. Yesterday morning, she got up to use the walker, but her knees gave out and she fell onto her bottom. She was unable to get up. She was on the floor for approximately 8 hours and then brought to the ER. White count 21.9.
Left thigh noted to be red. Vascular ultrasound showed DVT of the left femoral vein. She was started on vancomycin and cefepime. Patient reports history of chronic wounds on the bilateral al which have now closed and stable. She denies any
fevers.
Past History
Additional Past Medical History:
Hypertension
HLD
Osteoarthritis
Melanoma status post resection from her back and left axillary node dissection
Venous stasis
Chronic BLE wounds
Allergy History:
amoxicillin Allergy (Verified 04/23/25 17:57)
Unknown
hydrocodone Allergy (Verified 04/23/25 17:57)
Unknown
Penicillins Allergy (Verified 04/23/25 17:57)
Unknown
Medications Reviewed: Yes
Current Antibiotics:
Vancomycin
Cefepime
Social History
Tobacco: Non-Smoker
Alcohol: None
Drug: None
Living: Alone
Family History
Family History: Not Pertinent
Review of Systems
Review of Systems
General: Negative Fever, Chills or Change in Appetite
HEENT: Negative Sinus Problems or Headache
Respiratory: Negative Dyspnea or Cough
Gasteroenterology: Negative Nausea, Vomiting or Diarrhea
Genital / Urological: Negative Dysuria or Flank Pain
Musculoskeletal: Joint Pain (bilateral knees)
All systems: All other systems were reviewed and were negative
Vital Signs
Temp Pulse Resp BP Pulse Ox
97.8 F 72 24 160/44 96
04/24/25 07:05 04/24/25 10:18 04/24/25 07:05 04/24/25 10:18 04/24/25 07:05
Physical Exam
Physical Exam
Constitutional: No Acute Distress and Comfortable
Eyes: No Conjunctival Hemorrhage and Sclera Anicteric
Cardiovascular: Regular Rate and S1/S2
Pulmonary: Clear
Gastrointestinal: Soft, Non Tender, Non Distended and Normal Bowel Sounds
Genito-Urinary: Negative CVA Tenderness
Extremities: Edema (left thigh), Erythema (left lateral thigh minimal erythema) and Venous Insufficiency (ble)
Wound: Other (Bilateral distal extremities with dry wounds without infection)
Neurological: AO x 3
Lab / Diagnostic Study Results
04/24/25 08:47
04/24/25 08:47
Abs Immat Gran (auto) 0.8 10^3/uL (0-0.05) H 04/23/25 14:32
Absolute Neuts (auto) 18.8 10^3/uL (1.4-6.5) H 04/23/25 14:32
Absolute Lymphs (auto) 0.9 10^3/uL (1.2-3.4) L 04/23/25 14:32
Absolute Monos (auto) 1.1 10^3/uL (0.1-0.6) H 04/23/25 14:32
Absolute Basos (auto) 0.1 10^3/uL (0-0.2) 04/23/25 14:32
Total Counted 100 04/23/25 14:32
Immature Gran % 3.8 % (0-0.5) H 04/23/25 14:32
Neutrophils % 85.9 % (42.2-75.2) H 04/23/25 14:32
Lymphocytes % 3.9 % (20.5-51.1) L 04/23/25 14:32
Monocytes % 5.0 % (1.7-9.3) 04/23/25 14:32
Eosinophils % 1.0 % (0-6) 04/23/25 14:32
Basophils % 0.4 % (0-2) 04/23/25 14:32
Abs Neuts (Manual) 18.3 10^3/uL (1.4-6.5) H 04/23/25 14:32
Segmented Neutrophils 59 % (42-75) 04/23/25 14:32
Band Neutrophils 25 % (0-3) H 04/23/25 14:32
Lymphocytes (Manual) 3 % (20-51) L 04/23/25 14:32
Lactic Acid 1.9 mmol/L (0.7-2.0) 04/23/25 Unknown
Ur Squamous Epith Cells 3-5 /LPF (Few) 04/23/25 15:00
Microbiology Results
Micro:
04/23/25 15:00 Blood Culture - Pending
Blood/Venous
04/23/25 14:32 Blood Culture - Pending
Blood/Venous
04/23 Peripheral Vascular US: Nonocclusive deep venous thrombosis in the left femoral vein.
Assessment / Plan
# Acute L femoral vein DVT after fall, down for 8 hours
- Left thigh erythema/edema due to DVT, not cellulitis
- DC Vanco/cefepime and observe.
#Leukocytosis
- reactive from fall, rhabdo
- trend wbc
# Conditions [employer]
Hypertension
HLD
Osteoarthritis
Melanoma status post resection from her back and left axillary node dissection
Venous stasis
Chronic BLE wounds
--- NOTE | 2025-04-24 10:46 | PHA.VAN.FU ---
Vancomycin Assessment / Plan
- Assessment
Renal Function: SCR Decreasing (Dramatic decrease from 2 to 1.)
WBC's are: Trending Down
In the past 24 hrs, patient has been: Afebrile
Concomitant Antimicrobials: Cefepime
- Assessment - Therapeutic Drug Monitoring
Random Level: R = 12.5 ~16hrs post Vanc 2gm
- Dosing Plan
Adjust Regimen to: Vanc 1500mg IV q24H
New Regimen Predicts: AUC (521.69), Peak (34.67), Trough (12.34)
- Monitoring Plan
No level(s) ordered at this time: Consider levels after 04/26 dose.
- Follow Up
Pharmacy will continue to follow.
Vancomycin Follow UP
- -
Patient Age: 84
Patient Sex: Female
Vancomycin Day #: 2
Indication: Skin And Soft Tissue (LLE CELLULITIS)
Requesting Provider: ARLETTE
Height / Weight:
Height 5 ft 5 in
Actual Weight 107.955 kg
- Vital Signs / Lab Results
Temp Pulse Resp BP Pulse Ox
97.8 F 72 24 160/44 96
04/24/25 07:05 04/24/25 10:18 04/24/25 07:05 04/24/25 10:18 04/24/25 07:05
Lab Results - Hematology
04/23/25 04/23/25 04/24/25
14:32 19:41 08:47
WBC 21.9 H 20.0 H 19.5 H
Band Neutrophils 25 H
Lab Results - Chemistry
04/23/25 04/24/25
14:32 08:47
BUN 38 H 29 H
Creatinine 2.0 H 1.0
Estimated Creat Clear 25 50
Albumin 4.0
04/23/25 04/23/25
14:32 Unknown
Lactic Acid Cancelled 1.9
Lab Results - Urine
04/23/25
15:00
Urine Nitrite (Reflex) Negative
Leukocyte Esterase Rfl Negative
Ur Squamous Epith Cells 3-5
Therapeutic Drug Monitoring
Random Vancomycin 12.5 ug/ml 04/24/25 08:47
[2025-04-24] MEDS: ELIQUIS 10 MG PO ×2 (11:28→21:13)
[2025-04-24 11:46] LABS: Albumin 3.1 g/dl (3.5-5.0)
[2025-04-24 11:53] LABS: APTT 103.3 Sec (23.4-35.0)
[2025-04-24 12:06] LABS: Total CK 354 U/L (30-135)
[2025-04-24 12:20] LABS: Troponin I 0.028 ng/ml
[2025-04-24 12:38] LABS: CKMB 2.3 ng/ml (0.0-3.4)
--- NOTE | 2025-04-24 15:58 | CM ---
Patient seen bedside, initial assessment completed. Patient is a 84-year-old female with history of HTN, HLD, bilateral knee pain 'not a candidate' for knee replacements, presents from home after a fall.
Patient resides alone in a 4STH, no steps to enter. Patient enters via laundry room entrance of the home. Patient independent w/ the use of a RW, one on each floor. 2 chair glides in the home, one to the main level and another to the 2nd floor of
the house. Full access to a full bathroom on the 1st floor; walk-in shower with grab bar; sleeps in bedroom on the 2nd floor. Patient uses WC when out in the community, patient drives short distances during the daytime only.
Prev was at [facility] for rehab this year, no HC hx reported.
Address, point of contact and insurance verified
PCP: Nat Parry
Pharmacy: [facility]
PT to re-attempt to see, patient started heparin drip yesterday. Patient stated she was told she may need acute rehab, will await therapy assessment to determine d/c needs
Plan: CM will cont to follow for d/c planning
[2025-04-24] MEDS: ZESTRIL 5 MG PO ×2 (16:00→21:13)
[2025-04-25] VITALS (7 sets, daily range): BP systolic 135–167; BP diastolic 56–63; PULSE 60–61; O2SAT 96; BMI 40.2
[2025-04-25] MEDS: NSS 1000 IV (00:15)
[2025-04-25 07:36] LABS: Hematocrit 31.3 % (37.0-47.0); Hemoglobin 10.2 g/dL (12.0-16.0); Mean Corp Hgb Conc. 32.6 g/dL (33.0-37.0); Mean Corpuscular Hgb 30.1 pg (27.0-31.0); Mean Corpuscular Volume 92.3 fL (81.0-99.0); Mean Platelet Volume 11.9 fL (7.4-10.4); Platelet Count 92 10^3/uL (130-400); Red Blood Cell Count 3.39 10^6/uL (4.20-5.40); Red Cell Dist. Width 15.2 % (11.5-14.5)
[2025-04-25] MEDS: NSS IV (07:58)
[2025-04-25] MEDS: CARDIZEM CD 360 MG PO (07:59)
[2025-04-25] MEDS: ELIQUIS 10 MG PO ×2 (07:59→21:08)
[2025-04-25] MEDS: APRESOLINE 50 MG PO ×3 (07:59→21:07)
[2025-04-25] MEDS: ZESTRIL 5 MG PO ×2 (07:59→21:08)
[2025-04-25] MEDS: LIPITOR 10 MG PO (07:59)
[2025-04-25] MEDS: TOPROL XL PO (08:00)
[2025-04-25 08:01] LABS: Blood Urea Nitrogen 26 mg/dl (7-17); Carbon Dioxide 19 mmol/L (22-30); Chloride 116 mmol/L (98-107); Creatine Phosphokinase 179 U/L (30-135); Estimated Creatinine Clearance 56 ml/min; Glucose 82 mg/dl (70-99); Potassium 3.2 mmol/L (3.5-5.1); Sodium 141 mmol/L (135-145); eGFR > 60.00
--- NOTE | 2025-04-25 08:09 | W.PN.HOSP.TC ---
Today's Communication/Plan
-
Continue Eliquis
Doing well
Stop IV fluids
PT/OT
Likely will need acute rehab/SNF
Assessment / Plan
Assessment / Plan
Physical Exam
General: Well Developed, Well Nourished and No Apparent Distress
HEENT: Normocephalic, Moist mucous membranes and Atraumatic
Respiratory: Clear to Auscultation Bilaterally
Cardiac: S1/S2 and Regular Rhythm
GI: Soft, Non Tender, Non Distended and Normal Bowel Sounds
Musculoskeletal: No Cyanosis. Left thigh with some erythema.
Skin: Rash and Other (Left lower extremities wound, swelling and redness)
Neuro: AO x 3 and Nonfocal/grossly intact
Psych: Calm
Assessment/Plan
#UNLIKELY Left lower extremity cellulitis
#Chronic LLE wound
#Leukocytosis - reactive from fall, rhabdomyolysis
-Stop cefepime and vanco and observe, as per ID
-WBCs downtrending, no fevers so far
-Blood cultures pending with no growth to date
-wound care consulted
-ID consulted given significant leukocytosis and degree of infection -- they mentioned can stop antibiotics and observe as patient's leukocytosis and thigh signs and symptoms can be explained by DVT, rhabdomyolysis
#History of Sepsis and bacteremia due to left breast cellulitis related to recent breast trauma
-Had generalized weakness at that time
#Generalized Weakness Suspected from DVT
#Rhabdomyolysis secondary to the fall and long lie
- CK 600s initially, now improving after IV fluids
- Stopped IV fluids as patient is eating and drinking
- PT/OT consulted
# Acute renal failure - RESOLVED - likely from rhabdomyolysis and possibly dehydration
- Creatinine 2.0 --> 1.0 --> 0.9 after IV fluids
- Stopped IV fluids now as patient is eating and drinking
- BMP in a.m.
#Non-Anion Gap Metabolic Acidosis
- Suspected from Normal Saline IV fluids, which is now stopped as above
- Monitor BMP
# Nonocclusive DVT in the left femoral vein
-Was bedrest, now can do activity as tolerated
-Duplex with impression of Nonocclusive deep venous thrombosis in the left femoral vein
-Heparin Drip stopped. Continue Eliquis 10 mg BID x 7 days, followed by 5 mg BID
-Need to control blood pressure with goal SBP<160 mmHg -- one reason being in order to decrease bleeding risk (see below)
-Activity is bedrest for now
# Anemia of chronic disease
# Acute thrombocytopenia likely from acute infection
- Hemoglobin acceptable/stable so far
- No active bleeding
- Continue to monitor CBC
- With regards to likelihood of HIT, the 4Ts score is low
- Low platelets could be due to cephalosporin exposure
- Given patient's new and worsening thrombocytopenia and DVT, consulted hem/onc: continue Eliquis, platelets now leveled off, continue to monitor CBC
#History of melanoma with left axillary lymph node removal
#Essential Hypertension with hypertensive urgency
-Continue Cardizem/BB/Hydralazine
-Low sodium diet
-Continue Lisinopril 5 mg BID (added on 04/24/25) for better blood pressure control
#Hyperlipidemia
-Continue statin (CK went down as above while on statin, so okay to continue statin)
#OA
Code Status: Full Code
DVT Prophylaxis: Eliquis
On 04/23/25 and 04/24/25, I called patient's daughter Antionette and answered all of her questions and concerns to satisfaction.
Anticipated Discharge: 24 - 48 hours
Subjective/Interval History
-
Date of Service: April 25, 2025
Patient was seen and examined. She reported doing well and denied any complaints. Patient had no bleeding overnight. She was eating breakfast.
Objective Data
-
Labs:
Laboratory Results
04/25/25
06:51
WBC 14.0 H
Hgb 10.2 L
Hct 31.3 L
Plt Count 92 L
Sodium 141
Potassium 3.2 L
Chloride 116 H
Carbon Dioxide 19 L
BUN 26 H
Creatinine 0.9
Glucose 82
Calcium 8.0 L
Vital Signs:
Vital Signs
Temp Pulse Resp BP Pulse Ox
98.1 F 58 17 155/63 98
04/25/25 07:00 04/25/25 08:00 04/25/25 07:00 04/25/25 08:00 04/25/25 07:00
I&O
04/24/25 04/25/25 04/26/25
06:59 06:59 06:59
Intake Total 2040.9 / 2040.9
Output Total 1600 / 1600 325 / 325
Balance -1600 / -1600 1715.9 / 1715.9
[2025-04-25] MEDS: KCL 40 MEQ PO (08:14)
--- NOTE | 2025-04-25 10:25 | CON.ONC ---
Addendum entered and electronically signed by David Douglas DO 04/25/25 11:12:
Consultation date 04/25/2025
Original Note:
Impression
Impression
Left lower extremity DVT reversible cause nonocclusive which raises speculation regarding acuity
Thrombocytopenia acute consumption
Chronic vascular insufficiency with stasis wounds
Chronic anemia
Rhabdomyolysis
Acute renal insufficiency resolved
Plan
Plan
Thrombocytopenia unchanged and in a range where it is safe to proceed with DOAC
Heparin discontinued
Cephalosporins possible cause
Would recommend monitoring for recovery no intervention at this time
Anemia exacerbated by dilutional effect stable
Will follow
Patient History
History of Present Illness
84-year-old female with history of HTN, HLD, bilateral knee pain 'not a candidate' for knee replacements, presents from home after slipping from her bed onto the floor where she spent 8 hours unable to get up. Denied hitting head she was noted to
have LE swelling and redness with a Doppler which revealed evidence of DVT. She denied fever, cough,congestion, chest pain, fever. denied abdominal pain,n,v,d. denied dysuria or hematuria. Laboratory studies revealed evidence of acute renal
insufficiency. Apixaban has been initiated at appropriate loading dose for her weight and with evidence of renal insufficiency recovering.
Past-Medical/Surgical History
Past Medical History
HTN, HLD, OA, melanoma
Past Surgical History
Melanoma resection from her back and left axillary node dissection
Social History
Tobacco: Non-smoker
Alcohol: None
Drug: None
Personal: Single
Living: Alone
Family History
Noncontributory
Patient Medication
�Medication �Instructions �Recorded �Confirmed �Last Taken �Type
atorvastatin 10 mg tablet 10 mg PO DAILY High Cholesterol 03/03/24 04/23/25 04/22/25 History
fexofenadine 180 mg tablet 180 mg PO DAILY Allergies 0404/23/25 04/22/25 History
([facility])
metoprolol succinate 100 mg 100 mg PO DAILY Heart Failure 03/03/24 04/23/25 04/22/25 History
tablet,extended release 24 hr
hydralazine 50 mg tablet 50 mg PO TID #0 tabs 03/06/24 04/23/25 04/22/25 Rx
diltiazem HCl 360 mg capsule,24 360 mg PO DAILY 04/23/25 04/23/25 04/22/25 History
hr,extended release
furosemide 20 mg tablet 20 mg PO DAILY 04/23/25 04/23/25 04/22/25 History
ibuprofen 200 mg tablet (Advil) 400 mg PO TID 04/23/25 04/23/25 04/22/25 History
Active Medications
Generic Name Dose Route Start Last Admin
Trade Name Freq PRN Reason Stop Dose Admin
Apixaban 10 mg 04/24/25 11:25 04/25/25 07:59
Apixaban (Eliquis) 5 Mg Tablet PO 04/30/25 20:01 10 mg
BID NORTH Administration
Apixaban 5 mg 05/01/25 08:00
Apixaban (Eliquis) 5 Mg Tablet PO 05/29/25 07:59
BID NORTH
Atorvastatin Calcium 10 mg 04/24/25 08:00 04/25/25 07:59
Atorvastatin (Lipitor) 10 Mg Tablet PO 05/22/25 07:59 10 mg
DAILY NORTH Administration
Diltiazem HCl 360 mg 04/24/25 08:00 04/25/25 07:59
Diltiazem 180 Mg Extended Release (24 H) Capsule PO 05/22/25 07:59 360 mg
DAILY NORTH Administration
Hydralazine HCl 50 mg 04/23/25 22:00 04/25/25 07:59
Hydralazine 50 Mg Tablet PO 05/21/25 21:59 50 mg
TID NORTH Administration
Lisinopril 5 mg 04/24/25 15:50 04/25/25 07:59
Lisinopril 5 Mg Tablet PO 05/22/25 15:49 5 mg
BID NORTH Administration
Loratadine 10 mg 04/24/25 08:00 04/24/25 08:19
Loratadine 10 Mg Tablet PO 05/22/25 07:59 10 mg
Q48H NORTH Administration
Metoprolol Succinate 100 mg 04/24/25 06:15 04/25/25 08:00
Metoprolol 100 Mg Extended Release Tablet PO 05/22/25 06:14 Not Given
DAILY NORTH
Sodium Chloride 0 flush 04/23/25 18:00
Sodium Chloride 0.9% (Flush) Syringe IV 05/21/25 17:59
PER PROTOCOL NORTH
Review of Systems
-
12 point review of systems fails elicit additional complaints other than those reviewed in the HPI
Physical Exam
-
General: Well Developed, Well Nourished and No Apparent Distress
HEENT: Moist mucous membranes and Atraumatic
Respiratory: Clear
Cardiac: S1/S2 and Regular Rhythm; No Murmur or Rub
GI: Soft, Non Tender, No Organomegaly
Musculoskeletal: No Clubbing, No Cyanosis and No Edema
Skin: Rash and bilateral stasis changes with wounds, swelling and redness)
Neuro: AO x 3 and Nonfocal/grossly intact
Psych: Calm
Labs
Lab Results
WBC 14.0 10^3/uL (4.8-10.8) H 04/25/25 06:51
RBC 3.39 10^6/uL (4.20-5.40) L 04/25/25 06:51
Hgb 10.2 g/dL (12.0-16.0) L 04/25/25 06:51
Hct 31.3 % (37.0-47.0) L 04/25/25 06:51
MCV 92.3 fL (81.0-99.0) 04/25/25 06:51
MCH 30.1 pg (27.0-31.0) 04/25/25 06:51
MCHC 32.6 g/dL (33.0-37.0) L 04/25/25 06:51
RDW 15.2 % (11.5-14.5) H 04/25/25 06:51
Plt Count 92 10^3/uL (130-400) L 04/25/25 06:51
MPV 11.9 fL (7.4-10.4) H 04/25/25 06:51
Abs Immat Gran (auto) 0.8 10^3/uL (0-0.05) H 04/23/25 14:32
Absolute Neuts (auto) 18.8 10^3/uL (1.4-6.5) H 04/23/25 14:32
Absolute Lymphs (auto) 0.9 10^3/uL (1.2-3.4) L 04/23/25 14:32
Absolute Monos (auto) 1.1 10^3/uL (0.1-0.6) H 04/23/25 14:32
Absolute Eos (auto) 0.2 10^3/uL (0-0.7) 04/23/25 14:32
Absolute Basos (auto) 0.1 10^3/uL (0-0.2) 04/23/25 14:32
Immature Gran % 3.8 % (0-0.5) H 04/23/25 14:32
Neutrophils % 85.9 % (42.2-75.2) H 04/23/25 14:32
Lymphocytes % 3.9 % (20.5-51.1) L 04/23/25 14:32
Monocytes % 5.0 % (1.7-9.3) 04/23/25 14:32
Eosinophils % 1.0 % (0-6) 04/23/25 14:32
Basophils % 0.4 % (0-2) 04/23/25 14:32
Creatinine 0.9 mg/dL (0.6-1.0) 04/25/25 06:51
Vital Signs
Vital Signs
Temp Pulse Resp BP Pulse Ox
98.1 F 58 17 155/63 98
04/25/25 07:00 04/25/25 08:00 04/25/25 07:00 04/25/25 08:00 04/25/25 07:00
--- NOTE | 2025-04-25 12:05 | W.PN.ID1 ---
Date of Service
Date of Service: April 25, 2025
Today's Communication
Observe off abx.
Assessment / Plan
# Acute L femoral vein DVT after fall, down for 8 hours
- Left thigh erythema/edema due to DVT, not cellulitis
- Observe off abx.
#Leukocytosis - trending down
- reactive from fall, rhabdo
- blood cx's neg to date.
- trend wbc
# Conditions [employer]
Hypertension
HLD
Osteoarthritis
Melanoma status post resection from her back and left axillary node dissection
Venous stasis
Chronic BLE wounds
Chief Complaint
-: Leukocytosis and Other (DVT)
Subjective / Review of Systems
No complaints today. feels well.
Vital Signs / Physical Exam
Vital Signs
Vital Signs
Temp Pulse Resp BP Pulse Ox
98.7 F 88 17 135/60 97
04/25/25 11:05 04/25/25 11:05 04/25/25 11:05 04/25/25 11:05 04/25/25 11:05
Physical Exam
Constitutional: No Acute Distress and Comfortable
Cardiovascular: Regular Rate and S1/S2
Pulmonary: Clear
Gastrointestinal: Non Tender, Non Distended and Normal Bowel Sounds
Extremities: Edema (left thigh) and Erythema (Left thigh - mild erythema medial and lateral thigh, decreased warmth)
Neurological: AO x 3
Objective Data
Lab Data
Lab Results
04/25/25 06:51
04/25/25 06:51
APTT Cancelled 04/24/25 11:40
Estimated Creat Clear 56 ml/min 04/25/25 06:51
Lactic Acid 1.9 mmol/L (0.7-2.0) 04/23/25 Unknown
Total Bilirubin 1.0 mg/dl (0.2-1.3) 04/23/25 14:32
AST 35 U/L (14-36) 04/23/25 14:32
ALT 15 U/L (0-35) 04/23/25 14:32
Alkaline Phosphatase 69 U/L (38-126) 04/23/25 14:32
Most recent labs reviewed.
Micro Results:
04/23/25 15:00 Blood Culture - Preliminary
Blood/Venous No Growth in 24 hours- Final report to follow
04/23/25 14:32 Blood Culture - Preliminary
Blood/Venous No Growth in 24 hours- Final report to follow
04/23 Peripheral Vascular US: Nonocclusive deep venous thrombosis in the left femoral vein.
[2025-04-26] VITALS (8 sets, daily range): BP systolic 140–181; BP diastolic 56–76; PULSE 61; O2SAT 100; BMI 40.7
[2025-04-26] MEDS: APRESOLINE 5 MG IV (03:54)
[2025-04-26] MEDS: ZESTRIL 5 MG PO (06:03)
--- NOTE | 2025-04-26 06:10 | PTCARENOTE ---
RN reevaluated BP after one time dose of Hydralazine was given. Repeat BP was 174/61. WEATHER ALGORITHM SCIENTIST Jyoti Elaine made aware. Ok to give Lisinopril early per WEATHER [employer]GORITHM SCIENTIST. See mar for administration.
[2025-04-26 08:06] LABS: Hematocrit 32.3 % (37.0-47.0); Hemoglobin 10.9 g/dL (12.0-16.0); Mean Corp Hgb Conc. 33.7 g/dL (33.0-37.0); Mean Corpuscular Hgb 30.8 pg (27.0-31.0); Mean Corpuscular Volume 91.2 fL (81.0-99.0); Mean Platelet Volume 12.1 fL (7.4-10.4); Platelet Count 112 10^3/uL (130-400); Red Blood Cell Count 3.54 10^6/uL (4.20-5.40); Red Cell Dist. Width 15.2 % (11.5-14.5); White Blood Cell Count 8.4 10^3/uL (4.8-10.8)
[2025-04-26] MEDS: CARDIZEM CD 360 MG PO (08:35)
[2025-04-26] MEDS: LIPITOR 10 MG PO (08:35)
[2025-04-26] MEDS: TOPROL XL 100 MG PO (08:35)
[2025-04-26] MEDS: ELIQUIS 10 MG PO ×2 (08:35→20:25)
[2025-04-26] MEDS: CLARITIN 10 MG PO (08:35)
[2025-04-26] MEDS: APRESOLINE 50 MG PO ×3 (08:36→20:25)
[2025-04-26 09:21] LABS: Blood Urea Nitrogen 20 mg/dl (7-17); Calcium 8.6 mg/dl (8.4-10.2); Carbon Dioxide 18 mmol/L (22-30); Chloride 114 mmol/L (98-107); Creatine Phosphokinase 110 U/L (30-135); Estimated Creatinine Clearance 57 ml/min; Glucose 99 mg/dl (70-99); Potassium 3.7 mmol/L (3.5-5.1); Sodium 141 mmol/L (135-145); eGFR > 60.00
--- NOTE | 2025-04-26 09:25 | CM ---
Chart reviewed and patient has been approved and accepted at [facility] today.
Plan; Skilled placement at [facility] when stable.
--- NOTE | 2025-04-26 09:26 | W.PN.ID1 ---
Date of Service
Date of Service: April 26, 2025
Today's Communication
Observe off abx.
BLE compression
Assessment / Plan
# Acute L femoral vein DVT after fall, down for 8 hours
- Left thigh erythema/edema due to DVT, not cellulitis
- Observe off abx.
#Leukocytosis - resolved
- reactive from fall, rhabdo
- blood cx's neg to date.
# Venous stasis
- Knee high Tubigrip to BLE.
# Conditions [employer]
Hypertension
HLD
Osteoarthritis
Melanoma status post resection from her back and left axillary node dissection
Venous stasis
Chronic BLE wounds
Chief Complaint
-: Leukocytosis and Other (DVT)
Subjective / Review of Systems
Both knees remarkably improved after prayers with loom winder tender yesterday. Ambulated with walker.
Vital Signs / Physical Exam
Vital Signs
Vital Signs
Temp Pulse Resp BP Pulse Ox
98 F 67 18 181/62 97
04/26/25 07:03 04/26/25 07:03 04/26/25 07:03 04/26/25 07:03 04/26/25 07:03
Physical Exam
Constitutional: No Acute Distress and Comfortable
Pulmonary: Clear
Gastrointestinal: Soft, Non Tender, Non Distended and Normal Bowel Sounds
Extremities: Edema (left thigh/leg) and Erythema (LEft thigh mild erythema improves with leg raising)
Neurological: AO x 3
Objective Data
Lab Data
Lab Results
04/26/25 07:13
04/26/25 07:13
APTT Cancelled 04/24/25 11:40
Estimated Creat Clear 57 ml/min 04/26/25 07:13
Lactic Acid 1.9 mmol/L (0.7-2.0) 04/23/25 Unknown
Total Bilirubin 1.0 mg/dl (0.2-1.3) 04/23/25 14:32
AST 35 U/L (14-36) 04/23/25 14:32
ALT 15 U/L (0-35) 04/23/25 14:32
Alkaline Phosphatase 69 U/L (38-126) 04/23/25 14:32
Most recent labs reviewed.
Micro Results:
04/23/25 15:00 Blood Culture - Preliminary
Blood/Venous No Growth in 48 hours- Final report to follow
04/23/25 14:32 Blood Culture - Preliminary
Blood/Venous No Growth in 48 hours- Final report to follow
04/23 Peripheral Vascular US: Nonocclusive deep venous thrombosis in the left femoral vein.
--- NOTE | 2025-04-26 09:33 | W.PN.HOSP.TC ---
Today's Communication/Plan
-
see plan
Assessment / Plan
Assessment / Plan
Gen: NAD, AAOx3.
Eyes: EOMI, PERRLA, no scleral icterus.
Neck: supple.
CV: RRR, +S1/S2, no m/r/g.
Resp: CTAB, no rales, wheezes, or rhonchi.
Abd: +BS, soft, NT, ND
Skin: stockings on LEs, 1-2+ B/L LE edema
Neuro: CN 2-12 intact, non-focal.
Psych: Normal mood and affect.
04/23/25 15:00 Blood/Venous Blood Culture - Preliminary
No Growth in 48 hours- Final report to follow
04/23/25 14:32 Blood/Venous Blood Culture - Preliminary
No Growth in 48 hours- Final report to follow
Chronic LLE wound:
-doubt cellulitis
-Leukocytosis was like reactive from fall, rhabdomyolysis, and acute DVT
-cefepime and vanco stopped as per ID
-Leukocytosis has resolved
-No fevers while hospitalized
Acute Rhabdomyolysis:
-mild, CPK on 365
-resolved with IVFs
Non-AG Metabolic Acidosis:
-start NaHCO3 infusion
Acute Nonocclusive DVT in the L femoral vein:
-Duplex with impression of Nonocclusive deep venous thrombosis in the left femoral vein
-was on Heparin Drip, now transitioned to Eliquis
Essential HTN:
-with hypertensive urgency
-Continue Cardizem/BB/Hydralazine
-increase Lisinopril to 20mg daily
Other problems:
MAR, resolved with IVFs
Generalized Weakness: PT/OT
Anemia of chronic disease: Hb stable
Acute thrombocytopenia: stable, could be due to Cephalosporin
h/o melanoma with left axillary lymph node removal
HLD: cont statin
OA
FULL/Eliquis
Anticipated Discharge: Within 24 hours
Subjective/Interval History
-
Date of Service: April 26, 2025
Objective Data
-
Labs:
Laboratory Results
04/26/25
07:13
WBC 8.4
Hgb 10.9 L
Hct 32.3 L
Plt Count 112 L D
Sodium 141
Potassium 3.7
Chloride 114 H
Carbon Dioxide 18 L
BUN 20 H
Creatinine 0.9
Glucose 99
Calcium 8.6
Vital Signs:
Vital Signs
Temp Pulse Resp BP Pulse Ox
98 F 67 18 181/62 97
04/26/25 07:03 04/26/25 07:03 04/26/25 07:03 04/26/25 07:03 04/26/25 07:03
I&O
04/25/25 04/26/25 04/27/25
06:59 06:59 06:59
Intake Total 2040.9 / 2040.9 1115 / 1115 240 / 240
Output Total 325 / 325
Balance 1715.9 / 1715.9 1115 / 1115 240 / 240
[2025-04-26] MEDS: SODIUM BICARBONATE 1075 MEQ IV ×2 (09:58→23:15)
[2025-04-26] MEDS: ZESTRIL 20 MG PO (10:00)
--- NOTE | 2025-04-26 10:35 | W.PN.ONC ---
Today's Communication / Plan
-
Platelets remain slightly diminished but stable. I suspect the mild thrombocytopenia may be due to an as yet unidentified infection, as suggested by the fever and elevated white count on admission. I would anticipate they would normalize within
the next week.
Impression
Impression
Left lower extremity DVT reversible cause nonocclusive which raises speculation regarding acuity
Thrombocytopenia acute consumption
Chronic vascular insufficiency with stasis wounds
Chronic anemia
Rhabdomyolysis
Acute renal insufficiency resolved
Plan
Plan
Thrombocytopenia unchanged and in a range where it is safe to proceed with DOAC
Heparin discontinued
Cephalosporins possible cause
Would recommend monitoring for recovery no intervention at this time
Anemia exacerbated by dilutional effect stable
Will follow
Subjective/Objective
Subjective/Objective
She is feeling a little better. She reports no new symptoms. Physical examination is unchanged.
Vital Signs:
Vital Signs
Temp Pulse Resp BP Pulse Ox
98 F 67 18 181/62 97
04/26/25 07:03 04/26/25 07:03 04/26/25 07:03 04/26/25 07:03 04/26/25 08:00
Lab Results:
Laboratory Data
WBC 8.4 10^3/uL (4.8-10.8) 04/26/25 07:13
Hgb 10.9 g/dL (12.0-16.0) L 04/26/25 07:13
Plt Count 112 10^3/uL (130-400) L D 04/26/25 07:13
APTT Cancelled 04/24/25 11:40
eGFR > 60.00 04/26/25 07:13
--- NOTE | 2025-04-26 10:52 | WOUNDNOTE ---
BILATERAL LOWER EXTREMITIES
--- NOTE | 2025-04-26 10:53 | WOUNDNOTE ---
RIGHT LATERAL LOWER LEG
--- NOTE | 2025-04-26 10:54 | WOUNDNOTE ---
RIGHT LATERAL LOWER LEG
--- NOTE | 2025-04-26 10:54 | WOUNDNOTE ---
LEFT LATERAL LOWER LEG
--- NOTE | 2025-04-26 10:55 | WOUNDNOTE ---
BERNADINE RN note: Patient admitted with DVT and rhabdomyolysis.
See H&P for complete history.
PMH: HTN,HLD,OA and melanoma of L axillary node and back- removed 11 yrs ago, chronic venous ulcers.
Wound Location and type/assessment: Patient known to service, admitted with: B/L legs with crusted venous stasis ulcers, dry and intact. + palpable pedal pulses, legs with 1-2+ edema and very dry skin. + DVT on L leg, swelling of knee and slightly
pink. Patient reports L knee much improved compared to admission. Patient states she uses Tubigrip knee high for compression at home. Refused moisturizer, states wounds opened up again when started using mineral oil. Sacrum and heels are reported
intact by nursing. Legs elevated with recliner chair for assessment.
Appetite: Good.
Pressure redistribution devices in place: Accumax. Encouraged leg elevation when sitting.
Plan: Recommend light compression, patient is on Eliquis. called SPD for Tubigrip size G. Asked nurse Daron to apply Tubigrip when received. Will confirm orders with hospitalist and updated nurse.
Updated care plan and will follow as needed.
Note to case management of equipment requested for discharge: None.
--- NOTE | 2025-04-26 16:25 | PN.CDI ---
CDI
- -
CDI:
Physician Documentation Request
Admit Date: 04/23/25 17:24
Dear Doctor,
Please review the following and provide your response in the progress notes.
Clinical Indicators:
Height: 5'5'
Weight: 244lbs
BMI:40.7
If possible, please provide an associated diagnosis related to the abnormal BMI, such as:
BMI > or = to 40
Overweight
Obesity:
Due to excess calories
Drug induced
Severe or morbid obesity:
With alveolar hypoventilation (Obesity hypoventilation syndrome)
Without alveolar hypoventilation
BMI is not significant
Other
Use of terms such as suspected, likely, concern for, or probable (associated with a specific diagnosis that is being evaluated, monitored, or treated as if it exists) are acceptable and can be coded in the inpatient setting, when documented at the
time of discharge.
Thank you,
Crista Cleveland RN, BSN
CDI Specialist
[employer]
Please use your independent medical judgment in providing your response.
[2025-04-27 03:39] VITALS: BP 139/77
[2025-04-27 06:00] VITALS: BMI 40.1
[2025-04-27 07:08] LABS: Hemoglobin 9.7 g/dL (12.0-16.0); Mean Corp Hgb Conc. 33.4 g/dL (33.0-37.0); Mean Corpuscular Hgb 30.3 pg (27.0-31.0); Mean Corpuscular Volume 90.6 fL (81.0-99.0); Mean Platelet Volume 11.7 fL (7.4-10.4); Platelet Count 117 10^3/uL (130-400); White Blood Cell Count 6.7 10^3/uL (4.8-10.8)
[2025-04-27 07:35] VITALS: BP 174/66
[2025-04-27] MEDS: ZESTRIL 20 MG PO (08:00)
[2025-04-27] MEDS: CARDIZEM CD 360 MG PO (08:00)
[2025-04-27] MEDS: TOPROL XL 100 MG PO (08:00)
[2025-04-27] MEDS: LIPITOR 10 MG PO (08:00)
[2025-04-27] MEDS: ELIQUIS 10 MG PO (08:00)
[2025-04-27] MEDS: APRESOLINE 50 MG PO (08:00)
[2025-04-27 08:13] LABS: Creatine Phosphokinase 55 U/L (30-135)
--- NOTE | 2025-04-27 11:05 | W.PN.HOSP.TC ---
Addendum entered and electronically signed by Evan Mann MD 04/27/25 12:28:
Total time spent on d/c = 38 min. This included today's physical exam, progress note, review of laboratory and diagnostic data, preparation of discharge documents and prescriptions, and discussions about the pt's hospital course and discharge plan
with the patient and other electromedical service engineer involved in the patient's care.
Original Note:
Today's Communication/Plan
-
likely d/c later today after BMP results
Assessment / Plan
Assessment / Plan
Gen: remains NAD, AAOx3.
Eyes: EOMI, PERRLA, no scleral icterus.
Neck: supple.
CV: remains RRR, +S1/S2, no m/r/g.
Resp: CTAB anteriorly, no rales, wheezes, or rhonchi.
Abd: +BS, soft, NT, ND
Skin: stockings on LEs, 1-2+ B/L LE edema
Neuro: CN 2-12 intact, non-focal.
Psych: Normal mood and affect.
04/23/25 15:00 Blood/Venous Blood Culture - Preliminary
No Growth in 72 hours- Final report to follow
04/23/25 14:32 Blood/Venous Blood Culture - Preliminary
No Growth in 72 hours- Final report to follow
Chronic LLE wound:
-doubt cellulitis
-Leukocytosis was like reactive from fall, rhabdomyolysis, and acute DVT
-cefepime and vanco stopped as per ID
-Leukocytosis has resolved
-No fevers while hospitalized
Acute Rhabdomyolysis:
-mild, CPK on 365
-resolved with IVFs
Non-AG Metabolic Acidosis:
-started on NaHCO3 infusion on 04/26/25
-check BMP
Acute Nonocclusive DVT in the L femoral vein:
-Duplex with impression of Nonocclusive deep venous thrombosis in the left femoral vein
-was on Heparin Drip, now transitioned to Eliquis
Essential HTN:
-with hypertensive urgency
-Continue Cardizem/BB/Hydralazine/Lisinopril
Other problems:
Morbid obesity due to excess calories
MAR, resolved with IVFs
Generalized Weakness: PT/OT
Anemia of chronic disease: Hb noted, currently 9.7
Acute thrombocytopenia: stable, could be due to Cephalosporin
h/o melanoma with left axillary lymph node removal
HLD: cont statin
OA
FULL/Eliquis
Anticipated Discharge: Today
Subjective/Interval History
-
Date of Service: April 27, 2025
No new complaints.
Objective Data
-
Labs:
Laboratory Results
04/27/25
06:36
WBC 6.7
Hgb 9.7 L
Hct 29.0 L
Plt Count 117 L
Vital Signs:
Vital Signs
Temp Pulse Resp BP Pulse Ox
98.2 F 65 20 174/66 95
04/27/25 07:35 04/27/25 07:35 04/27/25 07:35 04/27/25 07:35 04/27/25 08:00
I&O
04/26/25 04/27/25 04/28/25
06:59 06:59 06:59
Intake Total 1115 / 1115 2480 / 2480
Balance 1115 / 1115 2480 / 2480
[2025-04-27 11:36] VITALS: BP 130/51
[2025-04-27 11:46] LABS: Blood Urea Nitrogen 18 mg/dl (7-17); Calcium 8.4 mg/dl (8.4-10.2); Carbon Dioxide 25 mmol/L (22-30); Chloride 113 mmol/L (98-107); Estimated Creatinine Clearance 63 ml/min; Glucose 93 mg/dl (70-99); Potassium 3.7 mmol/L (3.5-5.1); Sodium 141 mmol/L (135-145); eGFR > 60.00
--- NOTE | 2025-04-27 12:34 | CM ---
Addendum entered by Jeana Herman 04/27/25 13:12:
1400 transport
Dtr/willis aware and will provide payment to Acute [facility]
Cost $120
Original Note:
CM reviewed pt with Dr Mann- ready for dc
Bed available at [facility] today and pt in agreement with plan
Pt without medical necessity for BLS transport
Pt in agreement with [facility] and associated fees
IMM verbally reviewed- copy provided
COVID test ordered per SNF request and pending
Discharge Disposition- [facility] via [facility]
Phone- [phone] Fax- [phone]
[2025-04-27 12:35] LABS: COVID-19 Antigen Negative (Negative)
--- NOTE | 2025-04-27 12:52 | W.DCSUMMARY ---
Discharge Summary
Discharge Data
Date of Admission: 04/23/25
Date of Discharge: 04/27/25
-
Pending Results: No
Hospital Course
Primary diagnoses:
Chronic left lower extremity wound
Reactive leukocytosis
Mild rhabdomyolysis
Acute left femoral vein deep vein thrombosis
Essential hypertension with hypertensive urgency
Acute kidney injury
Nonanion gap metabolic acidosis
Secondary diagnoses:
Morbid obesity due to excess calories
Generalized Weakness
Anemia of chronic disease
Acute thrombocytopenia
h/o melanoma with left axillary lymph node removal
Hyperlipidemia
Osteoarthritis
Consultants:
Hematology
Infectious disease
Imaging:
LLE U/S: Nonocclusive deep venous thrombosis in the left femoral vein.
84-year-old female presented with chief complaint of fall as outlined in the H&P done on admission. Hospital course by problem list:
Chronic LLE wound: The patient had a leukocytosis that was likely reactive from her fall. She was initially on cefepime and vancomycin which was stopped as per infectious disease. She had no fevers while hospitalized. Her leukocytosis resolved.
Acute kidney injury: This resolved with IV fluids
Acute Rhabdomyolysis: The patient's CPK was 365 and normalized with IV fluids.
Non-AG Metabolic Acidosis: This resolved with NaHCO3 infusion.
Acute Nonocclusive DVT in the L femoral vein: The patient was initially on a heparin drip and then transition to Eliquis.
Essential HTN with hypertensive urgency: The patient's blood pressure medications were adjusted while hospitalized and overall her blood pressure improved. At the time of discharge she is on Cardizem/BB/Hydralazine/Lisinopril.
Discharge Plan
-
Patient Disposition: Skilled Nursing/SNF
Discharge Diagnosis/Procedures: Chronic left lower extremity wound, reactive leukocytosis, mild rhabdomyolysis, acute left femoral vein deep vein thrombosis, essential hypertension with hypertensive urgency
Condition: Good
Diet: Low Cholesterol and 2 Gram Sodium
Activity: With assistance
Driving Restrictions: No driving
Blood Work: BMP and CBC in 1 week, prescription from PCP
Specialty Instructions: Weigh Daily- Call MD for wt gain/loss 3 lbs overnight/5 lbs in 1 week
Activity Restrictions/Additional Instructions:
Wound Care Instructions
Legs: knee high Tubigrip daily, can remove at bedtime.
Leg elevation when sitting
Follow up at wound care center if legs start draining again, call for an appointment.
Referrals:
Nat Parry MD [Family Provider, Internal Medicine] - in less than 1 week
Prescriptions:
New
Eliquis 5 mg Tablet
10 mg PO BID Qty: 0 0RF
Rx Instructions:
through 04/30/25PM
Eliquis 5 mg Tablet
5 mg PO BID Qty: 0 0RF
Rx Instructions:
start 05/01/25
lisinopril 20 mg Tablet
20 mg PO DAILY Qty: 0 0RF
Continued
atorvastatin 10 mg Tablet
10 mg PO DAILY
metoprolol succinate 100 mg Tablet Extended Release 24 Hr
100 mg PO DAILY
fexofenadine [[place] Allergy] 180 mg Tablet
180 mg PO DAILY
hydralazine 50 mg Tablet
50 mg PO TID Qty: 0 0RF
diltiazem HCl 360 mg Capsule,Extended Release 24 Hr
360 mg PO DAILY
Discontinued
ibuprofen [Advil] 200 mg Tablet
400 mg PO TID
furosemide 20 mg Tablet
20 mg PO DAILY
Discharge Orders:
Discharge Patient (As Directed); Ordered 04/27/25
Ordered By: Evan Mann
Discharge Date and Time
Print Language: KITTITIAN
[2025-04-27 16:30] VITALS: BP 176/64; PULSE 65; O2SAT 93
== END 2025-04-27 14:06 | DRG 300 ==
LOC: 4 WEST ACU 17:24
PROVIDERS: Registered Nurse; ADMITTING PHYSICIAN Hospitalist; ATTENDING PHYSICIAN Internal Medicine; CONSULT PHYSICIAN Internal Medicine Hematology & Oncology; CONSULT PHYSICIAN Internal Medicine Infectious Disease; EMERGENCY PHYSICIAN Emergency Medicine; FAMILY PHYSICIAN Internal Medicine
DX: I82.412 Acute embolism and thrombosis of left femoral vein (principal); E87.20 Acidosis, unspecified; M62.82 Rhabdomyolysis; N17.9 Acute kidney failure, unspecified; Z68.41 Body mass index [BMI] 40.0-44.9, adult; L97.129 Non-pressure chronic ulcer of left thigh with unspecified severity; E86.0 Dehydration; E78.00 Pure hypercholesterolemia, unspecified; I11.0 Hypertensive heart disease with heart failure; D63.8 Anemia in other chronic diseases classified elsewhere; D69.59 Other secondary thrombocytopenia; I16.0 Hypertensive urgency; Z88.0 Allergy status to penicillin; D72.829 Elevated white blood cell count, unspecified; I87.2 Venous insufficiency (chronic) (peripheral); I87.8 Other specified disorders of veins; E66.01 Morbid (severe) obesity due to excess calories; M17.0 Bilateral primary osteoarthritis of knee; I50.9 Heart failure, unspecified; W06.XXXA Fall from bed, initial encounter; Y93.89 Activity, other specified; Y92.003 Bedroom of unspecified non-institutional (private) residence as the place of occurrence of the external cause; Z60.2 Problems related to living alone; Z85.820 Personal history of malignant melanoma of skin; Z87.01 Personal history of pneumonia (recurrent); Z88.5 Allergy status to narcotic agent
CPT/HCPCS: 80048; 80053; 80202; 81003; 81015; 82040; 82550; 82553; 83605; 83735; 84484; 85025; 85027; 85730; 87040; 87811; 93005; 93971; 96360; 97116; 97162; 97166; 97530; 97535; 99285; J7030

== ENCOUNTER → 2025-06-23 09:32 | Outpatient (REF) | payer MEDICARE, OTHER, SELFPAY ==
[2025-06-23 11:45] LABS: Hematocrit 35.8 % (37.0-47.0); Hemoglobin 11.5 g/dL (12.0-16.0); Mean Corp Hgb Conc. 32.1 g/dL (33.0-37.0); Mean Corpuscular Volume 93.2 fL (81.0-99.0); Nucleated Red Blood Cells % 0 %; Platelet Count 142 10^3/uL (130-400); Red Cell Dist. Width 14.4 % (11.5-14.5)
[2025-06-23 12:15] LABS: ALT (SGPT) 11 U/L (0-35); AST (SGOT) 19 U/L (14-36); Albumin 4.2 g/dl (3.5-5.0); Alkaline Phosphatase 101 U/L (38-126); Blood Urea Nitrogen 23 mg/dl (7-17); Calcium 9.3 mg/dl (8.4-10.2); Carbon Dioxide 28 mmol/L (22-30); Chloride 106 mmol/L (98-107); Glucose 103 mg/dl (70-99); HDL Cholesterol 60 mg/dl; LDL Cholesterol, Calculated 103 mg/dl; Potassium 4.6 mmol/L (3.5-5.1); Sodium 142 mmol/L (135-145); Total Protein 7.8 g/dl (6.3-8.2); Very Low Density Lipoprotein 21 mg/dl (0-30); eGFR 54.87
[2025-06-23 12:33] LABS: TSH 1.80 uIU/ml (0.47-4.68)
[2025-06-23 12:41] LABS: Glycohemoglobin (HgbA1c) 5.3 % (4.0-5.6)
== END ==
LOC: HWLAB 09:32
PROVIDERS: ATTENDING PHYSICIAN Internal Medicine
DX: E78.5 Hyperlipidemia, unspecified (principal); R73.01 Impaired fasting glucose; Z85.820 Personal history of malignant melanoma of skin
CPT/HCPCS: 36415; 71046; 80053; 80061; 83036; 84443; 85025

== ENCOUNTER → 2025-08-06 14:19 | Outpatient (REF) | payer MEDICARE, OTHER, SELFPAY | LOC: HWWDC 14:19 | PROVIDERS: ATTENDING PHYSICIAN Internal Medicine | DX: Z12.31 Encounter for screening mammogram for malignant neoplasm of breast (principal) | CPT/HCPCS: 77063; 77067 ==